=== PATIENT | male | born 1955 | race Caucasian/White ===

== ENCOUNTER → 2018-03-16 | Outpatient (CLI) | payer OTHER | END | disposition home or self-care (01) | LOC: RT 10:26 | DX: G31.84 Mild cognitive impairment of uncertain or unknown etiology (principal); R29.6 Repeated falls; R56.9 Unspecified convulsions; Z87.820 Personal history of traumatic brain injury | CPT/HCPCS: 95816 ==

== ENCOUNTER → 2018-03-22 | Outpatient (CLI) | payer OTHER ==
[2015-12-04 14:30] VITALS: BP 131/79
[~2018-03-22] MED LIST: CA C1TAB62 PO; CELE200C PO; DOCU-150 PO; FERR325T58 PO; FEXO1TAB27 PO; HYDR-2762 PO; LISI2.5T PO; METF10003 PO; MULT1TAB52 PO; OXYC-323 PO; PIOG30TA41 PO; WARF-78 PO; mega red
--- NOTE | 2018-03-22 13:20 | KCIC ---
MRI of the brain without contrast 03/22/2018 Clinical History: Cognitive impairment with frequent falls and seizures. Technique: Unenhanced T1-weighted sagittal and axial, T2-weighted axial and coronal and FLAIR, gradient echo and diffusion-weighted axial images of the brain were obtained. Additionally thin section FLAIR coronal images through the temporal lobes were obtained. Findings: No previous imaging studies are available for comparison. There is generalized parenchymal atrophy. Patchy, confluent and multiple focal areas of increased signal intensity are seen within the periventricular and subcortical white matter of both cerebral hemispheres on the FLAIR and T2-weighted images consistent with areas of small vessel ischemic disease. An area of encephalomalacia is seen involving the anterior lateral left temporal lobe. This measures 3 cm in greatest diameter. A smaller area encephalomalacia is seen involving right lateral temporal lobe. This measures 1.2 cm in size. No acute parenchymal abnormality is seen. No extra-axial fluid collection is seen. There is no MRI evidence of acute ischemia/infarction. Mild mucosal thickening is seen scattered throughout the paranasal sinuses. There is a minimal bilateral mastoid effusions, right greater than left. Normal flow voids are seen within the major vascular structures surrounding the brain parenchyma. Impression: No acute parenchymal abnormality is seen. Electronically signed by: Albert Rivera MD (03/22/2018 1:16 PM) [facility]
== END | disposition home or self-care (01) ==
LOC: KCIC MRI 11:20
PROVIDERS: ATTEND Psychiatry & Neurology Neurology with Special Qualifications in Child Neurology
DX: G31.84 Mild cognitive impairment of uncertain or unknown etiology (principal); G93.89 Other specified disorders of brain; R56.9 Unspecified convulsions; Z87.820 Personal history of traumatic brain injury; X58.XXXA Exposure to other specified factors, initial encounter; Y93.89 Activity, other specified; Y92.89 Other specified places as the place of occurrence of the external cause; Y99.8 Other external cause status
CPT/HCPCS: 70551

== ENCOUNTER → 2019-01-08 | Outpatient (CLI) | payer OTHER ==
[2015-12-04 14:30] VITALS: BP 131/79
[~2019-01-08] MED LIST changes: -HYDR-2762 PO; +HYDR-2765 PO; -METF10003 PO; +METF10007 PO; -OXYC-323 PO; +OXYC1TAB15 PO
--- NOTE | 2019-01-08 12:27 | KCIC ---
MRI of the brain without contrast 01/08/2019 Clinical History: Traumatic brain injury. Frequent falls. Partial complex seizures. Alzheimer's dementia. Technique: Unenhanced T1-weighted sagittal and axial andT2-weighted axial, FLAIR, gradient echo and diffusion-weighted axial images of the brain were obtained. Additionally thin section T2-weighted and FLAIR coronal images through the temporal lobes were obtained. Findings: Comparison study is dated 03/22/2018. There is generalized parenchymal atrophy. Patchy, confluent and multiple focal areas of increased signal intensity are seen within the periventricular and subcortical white matter of both cerebral hemispheres on the FLAIR and T2-weighted images consistent with areas of small vessel ischemic disease. These have not significantly changed. Areas of encephalomalacia are seen involving the anterior left temporal lobe and the right lateral temporal lobe, unchanged. No acute parenchymal abnormality is seen. No extra-axial fluid collection is seen. There is no MRI evidence of acute ischemia/infarction. Mild mucosal thickening in seen scattered throughout the paranasal sinuses. There is a minimal left mastoid effusion. A small right mastoid effusion is seen. Normal flow voids are seen within the major vascular structures surrounding the brain parenchyma. Impression: No acute parenchymal abnormality is seen. Electronically signed by: Albert Rivera MD (01/08/2019 12:24 PM) [facility]
== END | disposition home or self-care (01) ==
LOC: KCIC MRI 09:56
PROVIDERS: ATTEND Psychiatry & Neurology Neurology with Special Qualifications in Child Neurology
DX: H74.8X3 Other specified disorders of middle ear and mastoid, bilateral (principal); G93.89 Other specified disorders of brain; G30.1 Alzheimer's disease with late onset; Z87.820 Personal history of traumatic brain injury
CPT/HCPCS: 70551

== ENCOUNTER 2020-08-08 18:49 | Inpatient (IN) | payer MEDICARE ==
[~2020-08-08] VITALS: Ht 172.7 cm; Wt 60.5 kg
[~2020-08-08 18:49] MED LIST changes: +ASPI-630 PO; -DOCU-150 PO; +DOCU-158 PO; +FLUO40CA2 PO; +MEMA10TA PO; +MULT-445 PO; -MULT1TAB52 PO; +OMEG1CAP38 PO; -WARF-78 PO; +WARF5TAB2 PO
--- NOTE | 2020-08-08 19:15 | PHYS DOC ---
Past Medical History Past Medical History: Dementia, Diabetes-Type II Past Surgical History: Knee Replacement Smoking Status: Former Smoker Alcohol Use: None Drug Use: None General Adult EDM: Chief Complaint: DENTAL PROBLEM HPI: HPI: Patient is a 65 year old male past medical history Alzheimer's dementia--Covid + July 21 presents for evaluation of right-sided facial swelling. History obtained from EMS they state swelling started approximately 1 day ago. Per EMS long term states patient is having difficulty eating /drinking due to swelling. No history of fever chills nausea vomiting. On exam patient is unable to provide any history. His vital signs are stable. Patient has swelling along the right parotid and some mandibular glands. Patient has diffuse poor dentition. Review of Systems: Review of Systems: Unable to obtain due to dementia Heart Score: Risk Factors: Risk Factors: DM, Current or recent (<one month) smoker, HTN, HLP, family history of CAD, obesity. Risk Scores: Score 0 - 3: 2.5% MACE over next 6 weeks - Discharge Home Score 4 - 6: 20.3% MACE over next 6 weeks - Admit for Clinical Observation Score 7 - 10: 72.7% MACE over next 6 weeks - Early Invasive Strategies Allergies: Allergies: Allergies Coded Allergies Type Severity Reaction Last Updated Verified No Known Drug Allergies 12/01/15 No Physical Exam: PE: Constitutional: Cachectic ill-appearing HENT: Normocephalic, atraumatic, bilateral external ears normal, diffuse poor dentition. Facial swelling right parotid submandibular Eyes: PERRLA, EOMI, conjunctiva normal, no discharge. [] Neck: Normal range of motion, no tenderness, supple, no stridor. [Prominent neck vasculature] Cardiovascular: Tachycardia Lungs & Thorax: Bilateral breath sounds clear to auscultation [no respiratory distress] Abdomen: Abdomen is soft Skin: Warm, dry, no erythema, no rash. [] Extremities: No deformities Neurologic: Demented unable to follow commands unable to provide any history EKG: EKG: EKG performed at 1925 sinus tachycardia heart rate [address] elevation no ST depression no acute MO [] Radiology/Procedures: Radiology/Procedures: [] Impression: FINDINGS: Visualized intracranial structures are unremarkable. Globes and orbital contents are normal. Visualized portions of paranasal sinuses and mastoid air cells are well-pneumatized Evaluation is limited secondary to extensive streak artifact from dental amalgam. There is extensive soft tissue stranding in subcutaneous fat overlying the right parotid gland extending down to the level of the mid neck. No area of periapical lucency and cortical breakthrough is identified. No periosteal abscess is identified. IMPRESSION: 1. Extensive stranding and edema suggesting is fat overlying the right parotid gland, with asymmetric enlargement and hypoenhancement of the right parotid. Findings may be infectious or inflammatory in etiology. 2. No distinct dental abscess identified. Exposure: One or more of the following in the visualized dose reduction techniques were utilized for this examination: 1. Automated exposure control 2. Adjustment of the MA and/or KV according to patient size 3. Use of iterative of reconstructive technique Electronically signed by: Dileep Arevalo MD (08/08/2020 8:56 PM) [facility] DICTATED and SIGNED BY: DILEEP AREVALO MD Course & Med Decision Making: Course & Med Decision Making Pertinent Labs and Imaging studies reviewed. (See chart for details) [] Patient was evaluated for chief complaint. Work-up consisted of laboratory analysis and radiologic imaging. Results reviewed. Patient noted to have a leukocytosis of greater than 22. Patient's heart rate tachycardic. Patient tested positive for Covid on July 21. CT shows inflammation of parotid gland. Patient started on vancomycin and Unasyn. Patient admitted to Dr. Busch consult placed for ID. Denney Disclaimer: Jumana Disclaimer: This electronic medical record was generated, in whole or in part, using a voice recognition dictation system. Departure Departure Impression: Primary Impression: Facial swelling Additional Impressions: Dementia Parotitis, acute COVID-19 Leukocytosis Disposition: ADMITTED INPT THIS HOSP Admitting Physician: ARELY Condition: STABLE Referrals: REYES HARRINGTON MD (PCP) HERMINIO WHYTE DO Aug 08, 2020 19:15
[2020-08-08] MEDS ORDERED: IOHEXOL 300 MG/ML 100ML VIAL. IV ONE (19:45)
[2020-08-08 19:53] LABS: BASO # 0.1 x10^3/uL (0.0-0.2); BASO % 0 % (0-3); EOS % 0 % (0-3); HEMATOCRIT 38.8 % (39.0-53.0); HEMOGLOBIN 12.6 g/dL (13.0-17.5); LYMPH # 0.7 x10^3/uL (1.0-4.8); LYMPH % 3 % (24-48); MEAN CORPUSCULAR HEMOGLOBIN 28 pg (25-35); MEAN CORPUSCULAR HGB CONC 33 g/dL (31-37); MEAN CORPUSCULAR VOLUME 86 fL (79-100); MONO # 1.2 x10^3/uL (0.0-1.1); MONO % 5 % (0-9); NEUT # 20.9 x10^3/uL (1.8-7.7); NEUT % 91 % (31-73); PLATELET COUNT 347 x10^3/uL (140-400); RED BLOOD COUNT 4.51 x10^6/uL (4.30-5.70); RED CELL DISTRIBUTION WIDTH 14.3 % (11.5-14.5); WHITE BLOOD COUNT 22.9 x10^3/uL (4.0-11.0)
[2020-08-08] MEDS ORDERED: IV NORMAL SALINE 1000ML BAG 1,000 ML IV ONE ×2 (20:00→23:30)
[2020-08-08] MEDS ORDERED: CONTRAST GIVEN. MC PRN (20:00)
[2020-08-08 20:05] LABS: CALCIUM 9.5 mg/dL (8.5-10.1); CREATININE 1.6 mg/dL (0.7-1.3); GFR 43.5; POTASSIUM 4.2 mmol/L (3.5-5.1)
[2020-08-08 20:10] LABS: ALBUMIN 3.4 g/dL (3.4-5.0); ALBUMIN/GLOBULIN RATIO 0.9 (1.0-1.7); TOTAL BILIRUBIN 0.9 mg/dL (0.2-1.0); TOTAL PROTEIN 7.4 g/dL (6.4-8.2)
--- NOTE | 2020-08-08 20:59 | RAD ---
Exam: CT maxillofacial with contrast INDICATION: Facial swelling, right-sided, tooth abscess TECHNIQUE: Sequential axial images through the maxillofacial obtained following the administration of 75 mL of Omni 300 IV contrast. Sagittal and coronal reformatted images were reconstructed from the a xial data and reviewed. Comparisons: CT head 06/16/2020 FINDINGS: Visualized intracranial structures are unremarkable. Globes and orbital contents are normal. Visualized portions of paranasal sinuses and mastoid air cell s are well-pneumatized Evaluation is limited secondary to extensive streak artifact from dental amalgam. There is extensive soft tissue stranding in subcutaneous fat overlying the right parotid gland extend ing down to the level of the mid neck. No area of periapical lucency and cortical breakthrough is mateus ntified. No periosteal abscess is identified. IMPRESSION: 1. Extensive stranding and edema suggesting is fat overlying the right parotid gland, with asymmetri c enlargement and hypoenhancement of the right parotid. Findings may be infectious or inflammatory in etiology. 2. No distinct dental abscess identified. Exposure: One or more of the following in the visualized dose reduction techniques were utilized for this examination: 1. Automated exposure control 2. Adjustment of the MA and/or KV according to patient size 3. Use of iterative of reconstructive technique Electronically signed by: Dileep Ojeda MD (08/08/2020 8:56 PM) [facility]
[2020-08-08] MEDS ORDERED: VANCOMYCIN 1.25 GM in IV NORMAL SALINE 250ML 250 ML IV ONE (21:30)
[2020-08-08 21:38] LABS: % BANDS 2 % (0-9); % BASOS 1 % (0-3); % LYMPHS 3 % (24-48); % MONOS 8 % (0-10); % SEGS 86 % (35-66)
[2020-08-08 21:39] LABS: PLT ESTIMATE ADEQUATE (ADEQUATE)
[2020-08-08] MEDS ORDERED: ONDANSETRON PF 4 MG/2 ML VIAL. IV PRN (21:45)
[2020-08-08] MEDS ORDERED: ACETAMINOPHEN 325 MG TABLET. PO PRN (21:45)
[2020-08-08] MEDS ORDERED: VANCOMYCIN PER PHARMACY MC PRN (21:45)
[2020-08-08] MEDS ORDERED: AMPICILLIN/SULBACTAM 3 GM in IV NORMAL SALINE 100ML 100 ML IV ONE (22:00)
[2020-08-08] MEDS ORDERED: VANCOMYCIN 1.5 GM in IV NORMAL SALINE 500ML BAG 500 ML IV ONE (22:00)
--- NOTE | 2020-08-08 22:38 | RAD ---
Exam: Chest one view INDICATION: History of Covid, dementia, leukocytosis TECHNIQUE: Frontal view of the chest Comparisons: 11/17/2015 FINDINGS: The cardiomediastinal silhouette and pulmonary vessels are within normal limits. The lung and pleural spaces are clear. IMPRESSION: No acute cardiopulmonary process. Electronically signed by: Dileep Ojeda MD (08/08/2020 10:36 PM) [facility]
--- NOTE | 2020-08-09 00:28 | NUR ---
Pharmacy Vancomycin Dosing Note S:Consulted to monitor and dose vancomycin started 08/09/20. O:CLAUDIO MOHAMUD is a 65 year old M with Sepsis . Height: 5 feet, 8 inches Weight: 65.0 kg [place] Body Weight: 68.40 Adjusted Body Weight: 67.04 Dosing Weight: Actual Other Antibiotics: LABS: Last BUN: 57 Last Creatinine: 1.6 Creatinine Clearance: 41 mL/min Last WBC: 22.9 Last Procalcitonin: Tmax (past 24 hours): Microbiology: I/O: Drug Levels: Last level: on at Last dose given 08/09/20 at 0000 Vancomycin Dosing: Loading Dose: 1500 mg x1 Dosing Weight: Actual Target Trough: 15-20 A: Based on: WT AND CRCL P: 1. Begin Vancomycin 1000 mg IV q24h 2. Follow up Trough level on 08/10/20 at 2330 3. Pharmacy will continue to monitor, follow and adjust therapy as needed. TYRESE LLAMAS RPH, 08/09/20 0028 Signed: 08/09/20 at 0029 by TYRESE LLAMAS RPH PHA
[2020-08-09] MEDS ORDERED: FERR325T14 PO (02:11)
[2020-08-09] MEDS ORDERED: BISA10SU55 RC (02:11)
[2020-08-09] MEDS ORDERED: METF10007 PO (02:11)
[2020-08-09] MEDS ORDERED: MAGN400O7 PO (02:11)
[2020-08-09] MEDS ORDERED: APIX5TAB PO (02:11)
[2020-08-09] MEDS ORDERED: VENTOLIN HFA18 GM INH (02:11)
[2020-08-09] MEDS ORDERED: PIOG30TA62 PO (03:02)
[2020-08-09] MEDS ORDERED: ONDA4TAB7 PO (03:02)
[2020-08-09] MEDS ORDERED: CHOL500021 PO (03:02)
[2020-08-09] MEDS ORDERED: ASCO500C PO (03:02)
[2020-08-09 03:50] VITALS: BP 157/87
[2020-08-09] MEDS ORDERED: MORPHINE SULFATE 4 MG/ML VIAL. IV PRN (04:00)
[2020-08-09] MEDS: ACETAMINOPHEN 650 MG SUPP.RECT. PR PRN ×2 (04:42→18:38)
[2020-08-09 04:53] LABS: BASO % 0 % (0-3); EOS % 0 % (0-3); HEMATOCRIT 34.4 % (39.0-53.0); HEMOGLOBIN 11.2 g/dL (13.0-17.5); LYMPH # 0.8 x10^3/uL (1.0-4.8); LYMPH % 3 % (24-48); MEAN CORPUSCULAR HEMOGLOBIN 28 pg (25-35); MEAN CORPUSCULAR HGB CONC 33 g/dL (31-37); MEAN CORPUSCULAR VOLUME 86 fL (79-100); MONO # 1.7 x10^3/uL (0.0-1.1); MONO % 7 % (0-9); NEUT # 22.9 x10^3/uL (1.8-7.7); NEUT % 90 % (31-73); PLATELET COUNT 289 x10^3/uL (140-400); RED BLOOD COUNT 4.01 x10^6/uL (4.30-5.70); RED CELL DISTRIBUTION WIDTH 14.5 % (11.5-14.5); WHITE BLOOD COUNT 25.4 x10^3/uL (4.0-11.0)
[2020-08-09 07:00] VITALS: BP 167/83
--- NOTE | 2020-08-09 07:47 | PDOC1 ---
History and Physical Date of Service: DOS: DATE: 08/09/20 TIME: 07:44 Chief Complaint: Chief Complain: facial swelling History of Present Illness: HPI: 65 year old male past medical history Alzheimer's dementia--Covid + July 21 presents for evaluation of right-sided facial swelling. History obtained from EMS they state swelling started approximately 1 day ago. Per EMS correction states patient is having difficulty eating /drinking due to swelling. No history of fever chills nausea vomiting. On exam patient is unable to provide any history. His vital signs are stable. Patient has swelling along the right parotid and some mandibular glands. Patient has diffuse poor dentition. Past Medical/Surgical History: PMH/PSH: Past Medical History: Alzheimers, Dementia, Diabetes-Type II Past Surgical History: Knee Replacement Allergies: Allergies: Coded Allergies: No Known Drug Allergies (Unverified , 12/01/15) Family History: Family History: Reviewed with no relevant findings Social History: Social History: Smoking Status: Former Smoker Alcohol Use: None Drug Use: None Current Medications: Current Medications Current Medications Iohexol (Omnipaque 300 Mg/ml) 75 ml 1X ONCE IV Last administered on 08/08/20at 20:32; Start 08/08/20 at 19:45; Stop 08/08/20 at 19:46; Status DC Sodium Chloride 1,000 ml @ 1,000 mls/hr 1X ONCE IV Last administered on 08/08/20at 19:53; Start 08/08/20 at 20:00; Stop 08/08/20 at 20:59; Status DC Info (CONTRAST GIVEN -- Rx MONITORING) 1 each PRN DAILY PRN MC SEE COMMENTS; Start 08/08/20 at 20:00; Stop 08/10/20 at 19:59 Vancomycin HCl 1.25 gm/Sodium Chloride 250 ml @ 166.667 mls/hr 1X ONCE IV ; Start 08/08/20 at 21:30; Stop 08/08/20 at 22:59; Status UNV Ampicillin Sodium/ Sulbactam Sodium 3 gm/Sodium Chloride 100 ml @ 200 mls/hr 1X ONCE IV Last administered on 08/08/20at 23:05; Start 08/08/20 at 22:00; Stop 08/08/20 at 22:29; Status DC Vancomycin HCl (Vanco Per Pharmacy) 1 each PRN DAILY PRN MC SEE COMMENTS Last administered on 08/09/20at 00:27; Start 08/08/20 at 21:45 Vancomycin HCl 1.5 gm/Sodium Chloride 500 ml @ 250 mls/hr 1X ONCE IV Last administered on 08/09/20at 00:02; Start 08/08/20 at 22:00; Stop 08/08/20 at 23:59; Status DC Ondansetron HCl (Zofran) 4 mg PRN Q8HRS PRN IV NAUSEA/VOMITING 1ST CHOICE; Start 08/08/20 at 21:45; Stop 08/09/20 at 21:44 Acetaminophen (Tylenol) 650 mg PRN Q4HRS PRN PO FEVER > 100.3'F; Start 08/08/20 at 21:45; Stop 08/09/20 at 21:44 Sodium Chloride 1,000 ml @ 1,000 mls/hr 1X ONCE IV Last administered on 08/08/20at 23:06; Start 08/08/20 at 23:30; Stop 08/09/20 at 00:29; Status DC Vancomycin HCl 1 gm/Sodium Chloride 250 ml @ 250 mls/hr Q24H IV ; Start 08/10/20 at 00:00 Vancomycin HCl (Vancomycin Trough Level) 1 each 1X ONCE MC ; Start 08/10/20 at 23:30; Stop 08/10/20 at 23:31 Acetaminophen (Tylenol Supp) 650 mg PRN Q6HRS PRN [place] MILD PAIN / TEMP > 100.3'F Last administered on 08/09/20at 04:42; Start 08/09/20 at 04:30 Active Scripts Active Reported Zofran (Ondansetron Hcl) 4 Mg Tablet 4 Mg PO Q4HRS PRN D3-50 (Cholecalciferol (Vitamin D3)) 50,000 Unit Capsule 50,000 Unit PO DAILY Vitamin C (Ascorbic Acid) 500 Mg Capsule.er 1 Cap PO DAILY 30 Days Pioglitazone Hcl 30 Mg Tablet 30 Mg PO DAILY Milk Of Magnesia (Magnesium Hydroxide) 400 Mg/5 Ml Oral.susp 30 Ml PO DAILY PRN Metformin Hcl 1,000 Mg Tablet 1,000 Mg PO BIDWMEALS Ferrous Sulfate 325 Mg Tablet 1 Tab PO BID Eliquis (Apixaban) 5 Mg Tablet 5 Mg PO BID Dulcolax (Bisacodyl) 10 Mg Supp.rect 1 Supp RC DAILY PRN 10 Days Ventolin Hfa Inhaler (Albuterol Sulfate) 18 Gm Hfa.aer.ad 2 Puff INH Q4HRS PRN Aspirin 81 Mg Tab.chew 1 Tab PO DAILY [place] 3 Fish Oil Softgel (Vinton-3 Fatty Acids/Fish Oil) 1 Each Capsule.dr 1 Each PO DAILY Namenda (Memantine Hcl) 10 Mg Tablet 1 Tab PO BID Fluoxetine Hcl 40 Mg Capsule 1 Cap PO DAILYWBKFT Celebrex (Celecoxib) 200 Mg Capsule 1 Cap PO DAILY LAST DOSE GIVEN: DATE:12-04-15 TIME:8:30 a.m. NEXT DOSE DUE: DATE:12-05-15 TIME:8:30 a.m. Multivitamins (Multivitamin) 1 Each Tablet 1 Tab PO DAILY LAST DOSE GIVEN: DATE:12-04-15 TIME:8:30 a.m. NEXT DOSE DUE: DATE:12-05-15 TIME:8:30 a.m. ROS: Review of Systems Review of System REVIEW OF SYSTEMS: GENERAL: Denies weakness SKIN: No bruising, hair changes or rashes. EYES: No blurred, double or loss of vision. NOSE AND THROAT: No history of nosebleeds, hoarseness or sore throat. HEART: No history of palpitations, chest pain or shortness of breath on exertion. LUNGS: Denies cough, hemoptysis, wheezing or shortness of breath. GASTROINTESTINAL: Denies changes in appetite, nausea, vomiting, diarrhea or constipation. GENITOURINARY: No history of frequency, urgency, hesitancy or nocturia. NEUROLOGIC: Denies history of numbness, tingling, or tremor. PSYCHIATRIC: No history of panic, anxiety or depression. ENDOCRINE: No history of heat or cold intolerance, polyuria or polydipsia. EXTREMITIES: Denies joint pain, pain on walking or stiffness. Physical Exam: Vital Signs: Vital Signs Date Time Temp Pulse Resp B/P (MAP) Pulse Ox O2 Delivery O2 Flow Rate FiO2 08/09/20 03:50 99.2 101 21 157/87 (110) 95 Room Air 99.2 Physcial Exam: GEN: No apparent distress. Alert and oriented HEENT: Normal cephalic, atraumatic, external auditory canals are patent EYES: Extraocular muscles are intact, pupil are equally round and reactive to light and accommodation MUSCULOSKELETAL: Well developed , well nourished, good range of motion ENDOCRINE: No thyromegaly was palpated LYMPHATICS: No cervical chain or axillary nodes were noted HEMATOPOIETIC: No bruising NECK: Supple, no JVD, no thyromegaly was noted LUNGS: Clear to auscultation in all lung rosado without rhonchi or wheezing HEART: RRR, S!, S2 present. Peripheral pulses intact, no obvious murmurs noted ABDOMEN: Soft, nontender. Positive bowel sounds, no organomegaly, normal bowel sounds EXTREMITIES: Without clubbing, cyanosis, or edema. Pedal pulses intact. Negative Homans sign NEUROLOGIC: Normal speech and tone. A&O x 3, moves all extremities, no obvious focal deficits PSYCHIATRIC: Normal affect, normal mood. Stable SKIN: Right facial swelling and erythema. Tender upon palpation VASCULAR: Good capillary refill, neurovascular bundle appears to be intact Labs: Labs: Laboratory Tests Test 08/08/20 15:32 08/09/20 04:00 White Blood Count 22.9 x10^3/uL (4.0-11.0) 25.4 x10^3/uL (4.0-11.0) Red Blood Count 4.51 x10^6/uL (4.30-5.70) 4.01 x10^6/uL (4.30-5.70) Hemoglobin 12.6 g/dL (13.0-17.5) 11.2 g/dL (13.0-17.5) Hematocrit 38.8 % (39.0-53.0) 34.4 % (39.0-53.0) Mean Corpuscular Volume 86 fL (79-100) 86 fL (79-100) Mean Corpuscular Hemoglobin 28 pg (25-35) 28 pg (25-35) Mean Corpuscular Hemoglobin Concent 33 g/dL (31-37) 33 g/dL (31-37) Red Cell Distribution Width 14.3 % (11.5-14.5) 14.5 % (11.5-14.5) Platelet Count 347 x10^3/uL (140-400) 289 x10^3/uL (140-400) Neutrophils (%) (Auto) 91 % (31-73) 90 % (31-73) Lymphocytes (%) (Auto) 3 % (24-48) 3 % (24-48) Monocytes (%) (Auto) 5 % (0-9) 7 % (0-9) Eosinophils (%) (Auto) 0 % (0-3) 0 % (0-3) Basophils (%) (Auto) 0 % (0-3) 0 % (0-3) Neutrophils # (Auto) 20.9 x10^3/uL (1.8-7.7) 22.9 x10^3/uL (1.8-7.7) Lymphocytes # (Auto) 0.7 x10^3/uL (1.0-4.8) 0.8 x10^3/uL (1.0-4.8) Monocytes # (Auto) 1.2 x10^3/uL (0.0-1.1) 1.7 x10^3/uL (0.0-1.1) Eosinophils # (Auto) 0.0 x10^3/uL (0.0-0.7) 0.0 x10^3/uL (0.0-0.7) Basophils # (Auto) 0.1 x10^3/uL (0.0-0.2) 0.0 x10^3/uL (0.0-0.2) Segmented Neutrophils % 86 % (35-66) Band Neutrophils % 2 % (0-9) Lymphocytes % 3 % (24-48) Monocytes % 8 % (0-10) Basophils % 1 % (0-3) Platelet Estimate Adequate (ADEQUATE) Large Platelets Few Sodium Level 150 mmol/L (136-145) Potassium Level 4.2 mmol/L (3.5-5.1) Chloride Level 111 mmol/L (98-107) Carbon Dioxide Level 24 mmol/L (21-32) Anion Gap 15 (6-14) Blood Urea Nitrogen 57 mg/dL (8-26) Creatinine 1.6 mg/dL (0.7-1.3) Estimated GFR (Cockcroft-Gault) 43.5 BUN/Creatinine Ratio 36 (6-20) Glucose Level 195 mg/dL (70-99) Lactic Acid Level 1.7 mmol/L (0.4-2.0) Calcium Level 9.5 mg/dL (8.5-10.1) Total Bilirubin 0.9 mg/dL (0.2-1.0) Aspartate Amino Transf (AST/SGOT) 21 U/L (15-37) Alanine Aminotransferase (ALT/SGPT) 24 U/L (16-63) Alkaline Phosphatase 100 U/L (46-116) Total Protein 7.4 g/dL (6.4-8.2) Albumin 3.4 g/dL (3.4-5.0) Albumin/Globulin Ratio 0.9 (1.0-1.7) Laboratory Tests Test 08/08/20 15:32 08/09/20 04:00 White Blood Count 22.9 x10^3/uL (4.0-11.0) 25.4 x10^3/uL (4.0-11.0) Red Blood Count 4.51 x10^6/uL (4.30-5.70) 4.01 x10^6/uL (4.30-5.70) Hemoglobin 12.6 g/dL (13.0-17.5) 11.2 g/dL (13.0-17.5) Hematocrit 38.8 % (39.0-53.0) 34.4 % (39.0-53.0) Mean Corpuscular Volume 86 fL (79-100) 86 fL (79-100) Mean Corpuscular Hemoglobin 28 pg (25-35) 28 pg (25-35) Mean Corpuscular Hemoglobin Concent 33 g/dL (31-37) 33 g/dL (31-37) Red Cell Distribution Width 14.3 % (11.5-14.5) 14.5 % (11.5-14.5) Platelet Count 347 x10^3/uL (140-400) 289 x10^3/uL (140-400) Neutrophils (%) (Auto) 91 % (31-73) 90 % (31-73) Lymphocytes (%) (Auto) 3 % (24-48) 3 % (24-48) Monocytes (%) (Auto) 5 % (0-9) 7 % (0-9) Eosinophils (%) (Auto) 0 % (0-3) 0 % (0-3) Basophils (%) (Auto) 0 % (0-3) 0 % (0-3) Neutrophils # (Auto) 20.9 x10^3/uL (1.8-7.7) 22.9 x10^3/uL (1.8-7.7) Lymphocytes # (Auto) 0.7 x10^3/uL (1.0-4.8) 0.8 x10^3/uL (1.0-4.8) Monocytes # (Auto) 1.2 x10^3/uL (0.0-1.1) 1.7 x10^3/uL (0.0-1.1) Eosinophils # (Auto) 0.0 x10^3/uL (0.0-0.7) 0.0 x10^3/uL (0.0-0.7) Basophils # (Auto) 0.1 x10^3/uL (0.0-0.2) 0.0 x10^3/uL (0.0-0.2) Segmented Neutrophils % 86 % (35-66) Band Neutrophils % 2 % (0-9) Lymphocytes % 3 % (24-48) Monocytes % 8 % (0-10) Basophils % 1 % (0-3) Platelet Estimate Adequate (ADEQUATE) Large Platelets Few Sodium Level 150 mmol/L (136-145) Potassium Level 4.2 mmol/L (3.5-5.1) Chloride Level 111 mmol/L (98-107) Carbon Dioxide Level 24 mmol/L (21-32) Anion Gap 15 (6-14) Blood Urea Nitrogen 57 mg/dL (8-26) Creatinine 1.6 mg/dL (0.7-1.3) Estimated GFR (Cockcroft-Gault) 43.5 BUN/Creatinine Ratio 36 (6-20) Glucose Level 195 mg/dL (70-99) Lactic Acid Level 1.7 mmol/L (0.4-2.0) Calcium Level 9.5 mg/dL (8.5-10.1) Total Bilirubin 0.9 mg/dL (0.2-1.0) Aspartate Amino Transf (AST/SGOT) 21 U/L (15-37) Alanine Aminotransferase (ALT/SGPT) 24 U/L (16-63) Alkaline Phosphatase 100 U/L (46-116) Total Protein 7.4 g/dL (6.4-8.2) Albumin 3.4 g/dL (3.4-5.0) Albumin/Globulin Ratio 0.9 (1.0-1.7) Images: Images CXR Impression: 1. No acute cardiopulmonary process. CT MAX FACIAL IMPRESSION: 1. Extensive stranding and edema suggesting is fat overlying the right parotid gland, with asymmetric enlargement and hypoenhancement of the right parotid. Findings may be infectious or inflammatory in etiology. 2. No distinct dental abscess identified. Assessment/Plan Assessment/Plan Acute right parotitis COVID-19 infection Reactive leukocytosis suggestive of infectious etiology Normocytic anemia Acute electrolyte derangementhypernatremia and hyperchloremia suggestive of volume depletion dehydration HAILEY due to vasomotor nephropathy Alzheimer's dementia Poor dentition Diabetes mellitus type 2 Admit to medicine for further management ID consult Continue empiric IV antibiotics Pending repeat Covid test Chlorhexidine mouthwash for poor dentition PT OT speech modalities Lovenox for DVT prophylaxis Pepcid GI prophylaxis N.p.o. Full code Discussed with RN and SW Disposition pending ID evaluation Surrogate decision maker is the daughter Justifications for Admission Other Justification RONALD MEADE MD Aug 09, 2020 07:47
[2020-08-09] MEDS ORDERED: SENNOSIDES 8.6 MG TABLET PO PRN (08:00)
[2020-08-09] MEDS: INSULIN LISPRO 300 UNITS/3 ML VIAL. SQ SCH ×3 (08:00→17:00)
[2020-08-09] MEDS ORDERED: MORPHINE SULFATE 2 MG/ML VIAL. IV PRN (08:00)
[2020-08-09] MEDS ORDERED: ACETAMINOPHEN 325 MG TABLET. PO PRN (08:00)
[2020-08-09] MEDS ORDERED: DEXTROSE 50% 25 GM / 50ML DISP.SYRIN. IV PRN (08:00)
[2020-08-09] MEDS ORDERED: ONDANSETRON PF 4 MG/2 ML VIAL. IVP PRN (08:00)
[2020-08-09] MEDS ORDERED: DOCUSATE SODIUM 100 MG CAPSULE. PO PRN (08:00)
[2020-08-09] MEDS: IV 1/2 NORMAL SALINE 1,000 ML IV SCH ×2 (09:49→17:41)
[2020-08-09] MEDS ORDERED: AMPICILLIN/SULBACTAM 3 GM in IV NORMAL SALINE 100ML 100 ML IV SCH (10:00)
--- NOTE | 2020-08-09 10:14 | CONS ---
DATE OF CONSULTATION: 08/08/2020 REFERRING PHYSICIAN: Dr. Valencia. REASON FOR CONSULTATION: Right facial cellulitis, parotitis. HISTORY OF PRESENT ILLNESS: A 65-year-old longterm resident, was brought to the ER with COVID-19 positive 07/21/2020 with decreased p.o. intake, right-sided swelling and redness. The patient has poor dentition. The patient has severe Alzheimer's dementia, unable to provide any history. Does not respond to any questions. History obtained from chart and medical staff. The patient was noted to have swelling around the right face, parotid area and mandibular gland. The patient was febrile with leukocytosis and lactate of 1.7, creatinine of 1.6. CT maxillofacial area showed extensive stranding and edema suggesting fat overlying the right parotid gland with asymmetric enlargement and hyperenhancement of the right parotid. Findings may be infectious or inflammatory in etiology. No distinct dental abscess is identified. Chest x-ray showed no acute cardiopulmonary abnormality. The patient was started on vancomycin and Unasyn. ID consultation has been requested for antibiotic management. The patient currently remains on room air. Does not answer any questions. Grimaces with tactile stimuli. PAST MEDICAL HISTORY: Diabetes, longterm resident, Alzheimer's dementia, poor dentition. PAST SURGICAL HISTORY: Knee replacement. ALLERGIES: No known drug allergies. SOCIAL HISTORY: Former smoker, no alcohol, no drugs. long term resident. CURRENT MEDICATION: IV vancomycin and Unasyn. Other medications reviewed in medication list. REVIEW OF SYSTEMS: Unable to obtain. PHYSICAL EXAMINATION: VITAL SIGNS: Temperature 99.2, pulse 101, respiratory rate 21, blood pressure 157/87, oxygen saturation 95% on room air. T-max is 100.6. GENERAL: Ill-appearing, cachectic male, lying in bed, in no acute distress, on room air. HEENT: Normocephalic, atraumatic. Right-sided swelling, redness, erythema starting from the temporal area, going down the submandibular area, tenderness present. Poor dentition. NECK: Supple. LUNGS: Clear bilaterally. No wheezing. HEART: S1, S2, tachycardia. ABDOMEN: Soft, nontender, nondistended. EXTREMITIES: No edema, no cyanosis. DERMATOLOGIC: Warm and dry. No generalized rash. PSYCHIATRIC: Unable to assess due to underlying dementia. PSYCHIATRIC: Calm. LABORATORY DATA: WBC 25.4, was 22.9, hemoglobin 11.2, hematocrit 34.4, platelets 289. Sodium 150, potassium 4.2, chloride 111, bicarbonate 24, BUN 57, creatinine 1.6, glucose 195. Lactate 1.7. LFTs normal. IMAGING: Maxillofacial CT as above. Chest x-ray as above. IMPRESSION: 1. Right facial cellulitis. 2. Right parotitis. 3. Poor dentition. 4. Alzheimer's dementia. 5. COVID-19 infection on room air, diagnosed 07/21/2020 at longterm. 6. Fever. 7. Leukocytosis. 8. Diabetes mellitus 2. 9. Hypernatremia. 10. Acute kidney injury. RECOMMENDATIONS: 1. Discontinue Unasyn. Start Zosyn. May need renal dosing. 2. Discontinue vancomycin. 3. Start daptomycin. 4. Follow up labs and cultures. 5. Continue supportive care. 6. Prognosis is poor. 7. Discussed with RN. Thank you for allowing me to participate in this patient's care. If you have any questions, do not hesitate to contact me. CHRIS LOTT MD DR: BRYANT/paula JOB#: [id number] / [id number]
[2020-08-09 11:00] VITALS: BP 144/111
[2020-08-09] MEDS: PIPERACILLIN/TAZOBACTAM 3.375 GM in IV NORMAL SALINE 50ML 50 ML IV SCH ×3 (11:17→23:34)
[2020-08-09] MEDS: DAPTOmycin (GENERIC) IVPB 350 MG in IV NORMAL SALINE 50ML 50 ML IV SCH (12:23)
[2020-08-09 15:00] VITALS: BP 149/72
[2020-08-09 19:00] VITALS: BP 148/74
[2020-08-09] MEDS: CHLORHEXIDINE 0.12% 15 ML MOUTHWASH. SWSP SCH (21:06)
[2020-08-09] MEDS: ENOXAPARIN 40 MG/0.4 ML SYRINGE. SQ SCH (21:07)
[2020-08-09 23:00] VITALS: BP 135/77
[2020-08-10] MEDS ORDERED: VANCOMYCIN 1 GM in IV NORMAL SALINE 250ML 250 ML IV SCH
[2020-08-10 03:00] VITALS: BP 141/70
[2020-08-10] MEDS: PIPERACILLIN/TAZOBACTAM 3.375 GM in IV NORMAL SALINE 50ML 50 ML IV SCH ×3 (05:23→17:03)
[2020-08-10 07:00] VITALS: BP 155/87
[2020-08-10] MEDS: INSULIN LISPRO 300 UNITS/3 ML VIAL. SQ SCH ×3 (08:00→17:00)
[2020-08-10] MEDS: IV 1/2 NORMAL SALINE 1,000 ML IV SCH ×2 (08:05→17:04)
[2020-08-10] MEDS: CHLORHEXIDINE 0.12% 15 ML MOUTHWASH. SWSP SCH ×2 (08:05→21:39)
[2020-08-10 11:00] VITALS: BP 157/87
[2020-08-10 11:31] LABS: BASO % 0 % (0-3); EOS % 0 % (0-3); HEMATOCRIT 32.7 % (39.0-53.0); HEMOGLOBIN 10.4 g/dL (13.0-17.5); LYMPH # 1.2 x10^3/uL (1.0-4.8); LYMPH % 5 % (24-48); MEAN CORPUSCULAR HEMOGLOBIN 28 pg (25-35); MEAN CORPUSCULAR HGB CONC 32 g/dL (31-37); MEAN CORPUSCULAR VOLUME 87 fL (79-100); MONO % 4 % (0-9); NEUT # 21.1 x10^3/uL (1.8-7.7); NEUT % 90 % (31-73); PLATELET COUNT 223 x10^3/uL (140-400); RED BLOOD COUNT 3.78 x10^6/uL (4.30-5.70); RED CELL DISTRIBUTION WIDTH 14.6 % (11.5-14.5); WHITE BLOOD COUNT 23.4 x10^3/uL (4.0-11.0)
[2020-08-10 11:44] LABS: CALCIUM 8.5 mg/dL (8.5-10.1); CREATININE 1.3 mg/dL (0.7-1.3); GFR 55.2; MAGNESIUM 2.2 mg/dL (1.8-2.4); PHOSPHORUS 2.2 mg/dL (2.6-4.7); POTASSIUM 3.2 mmol/L (3.5-5.1)
[2020-08-10] MEDS: DAPTOmycin (GENERIC) IVPB 350 MG in IV NORMAL SALINE 50ML 50 ML IV SCH (11:45)
--- NOTE | 2020-08-10 12:06 | PDOC ---
Infectious Disease Note Subjective Subjective pt is lethargic ROS ROS no n/v/d/ Vital Sign Vital Signs Vital Signs Date Time Temp Pulse Resp B/P (MAP) Pulse Ox O2 Delivery O2 Flow Rate FiO2 08/10/20 11:00 99.5 85 20 157/87 (110) 95 Room Air 99.5 Physical Exam PHYSICAL EXAM GENERAL: Ill-appearing, cachectic male, lying in bed, in no acute distress, on room air. HEENT: Normocephalic, atraumatic. Right-sided swelling, redness, erythema starting from the temporal area, going down the submandibular area, tenderness present. Poor dentition. NECK: Supple. LUNGS: Clear bilaterally. No wheezing. HEART: S1, S2, tachycardia. ABDOMEN: Soft, nontender, nondistended. EXTREMITIES: No edema, no cyanosis. DERMATOLOGIC: Warm and dry. No generalized rash. PSYCHIATRIC: Unable to assess due to underlying dementia. PSYCHIATRIC: Calm. Labs Lab Laboratory Tests Test 08/09/20 20:41 08/10/20 08:23 08/10/20 08:32 08/10/20 10:52 Glucose (Fingerstick) 161 mg/dL (70-99) 137 mg/dL (70-99) 144 mg/dL (70-99) White Blood Count 23.4 x10^3/uL (4.0-11.0) Red Blood Count 3.78 x10^6/uL (4.30-5.70) Hemoglobin 10.4 g/dL (13.0-17.5) Hematocrit 32.7 % (39.0-53.0) Mean Corpuscular Volume 87 fL (79-100) Mean Corpuscular Hemoglobin 28 pg (25-35) Mean Corpuscular Hemoglobin Concent 32 g/dL (31-37) Red Cell Distribution Width 14.6 % (11.5-14.5) Platelet Count 223 x10^3/uL (140-400) Neutrophils (%) (Auto) 90 % (31-73) Lymphocytes (%) (Auto) 5 % (24-48) Monocytes (%) (Auto) 4 % (0-9) Eosinophils (%) (Auto) 0 % (0-3) Basophils (%) (Auto) 0 % (0-3) Neutrophils # (Auto) 21.1 x10^3/uL (1.8-7.7) Lymphocytes # (Auto) 1.2 x10^3/uL (1.0-4.8) Monocytes # (Auto) 1.0 x10^3/uL (0.0-1.1) Eosinophils # (Auto) 0.0 x10^3/uL (0.0-0.7) Basophils # (Auto) 0.0 x10^3/uL (0.0-0.2) Sodium Level 154 mmol/L (136-145) Potassium Level 3.2 mmol/L (3.5-5.1) Chloride Level 118 mmol/L (98-107) Carbon Dioxide Level 24 mmol/L (21-32) Anion Gap 12 (6-14) Blood Urea Nitrogen 37 mg/dL (8-26) Creatinine 1.3 mg/dL (0.7-1.3) Estimated GFR (Cockcroft-Gault) 55.2 Glucose Level 140 mg/dL (70-99) Calcium Level 8.5 mg/dL (8.5-10.1) Phosphorus Level 2.2 mg/dL (2.6-4.7) Magnesium Level 2.2 mg/dL (1.8-2.4) Micro Microbiology BC 1/2 G + cocci Objective Assessment IMPRESSION: 1. Right facial cellulitis. 2. Right parotitis. 3. Poor dentition. 4. Alzheimer's dementia. 5. COVID-19 infection on room air, diagnosed 07/21/2020 at [facility]. 6. Fever. 7. Leukocytosis. 8. Diabetes mellitus 2. 9. Hypernatremia. 10. Acute kidney injury. Plan Plan of Care cont antibiotics cont supportive care ILIA LOTT MD Aug 10, 2020 12:06
--- NOTE | 2020-08-10 12:46 | PDOC ---
[facility] [facility] PROGRESS NOTE Date of Service DOS: DATE: 08/10/20 TIME: 12:46 Chief Complaint Chief Complaint A/P: Right facial cellulitis. Right parotitis. Poor dentition. Alzheimer's dementia. COVID-19 infection on room air, diagnosed 07/21/2020 at [facility]. Sepsis - Fever and Leukocytosis Diabetes mellitus 2. Hypernatremia. Acute kidney injury. Dysphagia FEN - IVF PPX - lovenox CODE - DNR/DNI Dispo - inpatient History of Present Illness History of Present Illness Mr Martinez is a 65 year old male past medical history Alzheimer's dementia--Covid + July 21 presents for evaluation of right-sided facial swelling. History obtained from EMS they state swelling started approximately 1 day prior to admit. Per EMS [facility] states patient is having difficulty eating /drinking due to swelling. No history of fever chills nausea vomiting. On exam patient is unable to provide any history. His vital signs are stable. Patient has swelling along the right parotid and some mandibular glands. Patient has diffuse poor dentition. Swelling improved. Febrile to 1 to 1.7 F last 24 hours T-max. Minimal shortness of breath. Facial pain. Not swallowing. Vitals/I&O Vitals/I&O: Vital Signs Date Time Temp Pulse Resp B/P (MAP) Pulse Ox O2 Delivery O2 Flow Rate FiO2 08/10/20 11:00 99.5 85 20 157/87 (110) 95 Room Air 99.5 I & O 08/09/20 08/09/20 08/10/20 15:00 23:00 07:00 Intake Total 100 ml 0 ml 0 ml Balance 100 ml 0 ml 0 ml Physical Exam Physical Exam: GENERAL: Ill-appearing, cachectic male, lying in bed, in no acute distress, on room air. HEENT: Normocephalic, atraumatic. Right-sided swelling, redness, erythema starting from the temporal area, going down the submandibular area, tenderness present. Poor dentition. NECK: Supple. LUNGS: Clear bilaterally. No wheezing. HEART: S1, S2, tachycardia. ABDOMEN: Soft, nontender, nondistended. EXTREMITIES: No edema, no cyanosis. DERMATOLOGIC: Warm and dry. No generalized rash. PSYCHIATRIC: Unable to assess due to underlying dementia. PSYCHIATRIC: Calm. Labs Labs: Laboratory Tests Test 08/09/20 20:41 08/10/20 08:23 08/10/20 08:32 08/10/20 10:52 Glucose (Fingerstick) 161 mg/dL (70-99) 137 mg/dL (70-99) 144 mg/dL (70-99) White Blood Count 23.4 x10^3/uL (4.0-11.0) Red Blood Count 3.78 x10^6/uL (4.30-5.70) Hemoglobin 10.4 g/dL (13.0-17.5) Hematocrit 32.7 % (39.0-53.0) Mean Corpuscular Volume 87 fL (79-100) Mean Corpuscular Hemoglobin 28 pg (25-35) Mean Corpuscular Hemoglobin Concent 32 g/dL (31-37) Red Cell Distribution Width 14.6 % (11.5-14.5) Platelet Count 223 x10^3/uL (140-400) Neutrophils (%) (Auto) 90 % (31-73) Lymphocytes (%) (Auto) 5 % (24-48) Monocytes (%) (Auto) 4 % (0-9) Eosinophils (%) (Auto) 0 % (0-3) Basophils (%) (Auto) 0 % (0-3) Neutrophils # (Auto) 21.1 x10^3/uL (1.8-7.7) Lymphocytes # (Auto) 1.2 x10^3/uL (1.0-4.8) Monocytes # (Auto) 1.0 x10^3/uL (0.0-1.1) Eosinophils # (Auto) 0.0 x10^3/uL (0.0-0.7) Basophils # (Auto) 0.0 x10^3/uL (0.0-0.2) Sodium Level 154 mmol/L (136-145) Potassium Level 3.2 mmol/L (3.5-5.1) Chloride Level 118 mmol/L (98-107) Carbon Dioxide Level 24 mmol/L (21-32) Anion Gap 12 (6-14) Blood Urea Nitrogen 37 mg/dL (8-26) Creatinine 1.3 mg/dL (0.7-1.3) Estimated GFR (Cockcroft-Gault) 55.2 Glucose Level 140 mg/dL (70-99) Calcium Level 8.5 mg/dL (8.5-10.1) Phosphorus Level 2.2 mg/dL (2.6-4.7) Magnesium Level 2.2 mg/dL (1.8-2.4) Assessment and Plan Assessmemt and Plan Problems Medical Problems: (1) COVID-19 Status: Acute (2) Dementia Status: Acute (3) Facial swelling Status: Acute (4) Leukocytosis Status: Acute (5) Parotitis, acute Status: Acute Comment Review of Relevant I have reviewed the following items jennifer (where applicable) has been applied. Medications: Current Medications Medications (Trade) Dose Ordered Sig/Moise Route PRN Reason Start Time Stop Time Status Last Admin Dose Admin Enoxaparin Sodium (Lovenox 40mg Syringe) 40 mg Q24H SQ 08/09/20 21:00 08/09/20 21:07 Chlorhexidine Gluconate (Peridex) 15 ml BID SWSP 08/09/20 21:00 08/10/20 08:05 Justifications for Admission Other Justification Acute Parotitis ALISE MCKEON MD Aug 10, 2020 12:46
[2020-08-10 15:00] VITALS: BP 155/101
--- NOTE | 2020-08-10 16:52 | NUR ---
SW following for discharge planning. Spoke with RN and reviewed chart. Pt COVID positive, room air, NPO. SW consulted as pt at high risk for readmission on discharge. SW asked about PT/OT orders to evaluate. Pt of IV Dapto and IV Zosyn. SW following. Addendum: 08/11/20 at 1119 by VAUGHN REBOLLAR SW Pt identified as BPCI. No further needs from this SW.
--- NOTE | 2020-08-10 17:56 | NUR ---
Wound/Ostomy Care Wound Type/Assessment: right 3rd toe DFU, small open area with blood blister. wound cleansed and assessed. Treatment Recommendations/Plan: [place] with betadine daily Education provided: PU prevention and WC POC discussed with Liseth WHITE Offloading surface/device: TQ2H Recommended Referrals/Tests: na Discharge Recommendations for dressings: continue as above noted
[2020-08-10 19:20] VITALS: BP 148/82
[2020-08-10] MEDS: POTASSIUM CHLORIDE 10MEQ 100 ML IV SCH ×2 (21:39→23:01)
[2020-08-10] MEDS: ENOXAPARIN 40 MG/0.4 ML SYRINGE. SQ SCH (21:39)
[2020-08-10 23:00] VITALS: BP 154/95
[2020-08-11] MEDS: IV 1/2 NORMAL SALINE 1,000 ML IV SCH
[2020-08-11] MEDS: PIPERACILLIN/TAZOBACTAM 3.375 GM in IV NORMAL SALINE 50ML 50 ML IV SCH ×4 (00:08→17:35)
[2020-08-11] MEDS: POTASSIUM CHLORIDE 10MEQ 100 ML IV SCH ×2 (01:19→02:54)
[2020-08-11 03:20] VITALS: BP 147/77
[2020-08-11 07:00] VITALS: BP 171/92
[2020-08-11] MEDS: INSULIN LISPRO 300 UNITS/3 ML VIAL. SQ SCH ×3 (08:00→17:00)
--- NOTE | 2020-08-11 10:34 | PDOC ---
Infectious Disease Note Subjective Subjective pt is awake mumbles few words ROS ROS No nausea vomiting diarrhea fevers have improved Vital Sign Vital Signs Vital Signs Date Time Temp Pulse Resp B/P (MAP) Pulse Ox O2 Delivery O2 Flow Rate FiO2 08/11/20 07:00 98.6 95 30 171/92 (118) 95 Room Air 98.6 Physical Exam PHYSICAL EXAM GENERAL: Ill-appearing, cachectic male, lying in bed, in no acute distress, on room air. HEENT: Normocephalic, atraumatic. Right-sided swelling, redness, erythema starting from the temporal area, going down the submandibular area, tenderness present. Poor dentition. NECK: Supple. LUNGS: Clear bilaterally. No wheezing. HEART: S1, S2, tachycardia. ABDOMEN: Soft, nontender, nondistended. EXTREMITIES: No edema, no cyanosis. DERMATOLOGIC: Warm and dry. No generalized rash. PSYCHIATRIC: Unable to assess due to underlying dementia. PSYCHIATRIC: Calm. Labs Lab Laboratory Tests Test 08/10/20 10:52 08/10/20 16:37 08/10/20 21:12 08/11/20 08:18 White Blood Count 23.4 x10^3/uL (4.0-11.0) Red Blood Count 3.78 x10^6/uL (4.30-5.70) Hemoglobin 10.4 g/dL (13.0-17.5) Hematocrit 32.7 % (39.0-53.0) Mean Corpuscular Volume 87 fL (79-100) Mean Corpuscular Hemoglobin 28 pg (25-35) Mean Corpuscular Hemoglobin Concent 32 g/dL (31-37) Red Cell Distribution Width 14.6 % (11.5-14.5) Platelet Count 223 x10^3/uL (140-400) Neutrophils (%) (Auto) 90 % (31-73) Lymphocytes (%) (Auto) 5 % (24-48) Monocytes (%) (Auto) 4 % (0-9) Eosinophils (%) (Auto) 0 % (0-3) Basophils (%) (Auto) 0 % (0-3) Neutrophils # (Auto) 21.1 x10^3/uL (1.8-7.7) Lymphocytes # (Auto) 1.2 x10^3/uL (1.0-4.8) Monocytes # (Auto) 1.0 x10^3/uL (0.0-1.1) Eosinophils # (Auto) 0.0 x10^3/uL (0.0-0.7) Basophils # (Auto) 0.0 x10^3/uL (0.0-0.2) Sodium Level 154 mmol/L (136-145) Potassium Level 3.2 mmol/L (3.5-5.1) Chloride Level 118 mmol/L (98-107) Carbon Dioxide Level 24 mmol/L (21-32) Anion Gap 12 (6-14) Blood Urea Nitrogen 37 mg/dL (8-26) Creatinine 1.3 mg/dL (0.7-1.3) Estimated GFR (Cockcroft-Gault) 55.2 Glucose Level 140 mg/dL (70-99) Calcium Level 8.5 mg/dL (8.5-10.1) Phosphorus Level 2.2 mg/dL (2.6-4.7) Magnesium Level 2.2 mg/dL (1.8-2.4) Glucose (Fingerstick) 134 mg/dL (70-99) 110 mg/dL (70-99) 115 mg/dL (70-99) Micro Microbiology BC 1/2 G + cocci Staph aureus Objective Assessment IMPRESSION: 1. Right facial cellulitis. 2. Right parotitis. 3. Poor dentition. 4. Alzheimer's dementia. 5. COVID-19 infection on room air, diagnosed 07/21/2020 at longterm. 6. Fever. 7. Leukocytosis. 8. Diabetes mellitus 2. 9. Hypernatremia. 10. Acute kidney injury. 11 staph aureus bacteremia Plan Plan of Care cont antibiotics cont supportive care Patient DNR/DNI ILIA LOTT MD Aug 11, 2020 10:34
[2020-08-11 11:00] VITALS: BP 173/78
--- NOTE | 2020-08-11 11:39 | PDOC ---
[facility] PROGRESS NOTE Date of Service DOS: DATE: 08/11/20 TIME: 11:38 Chief Complaint Chief Complaint A/P: Right facial cellulitis. Right parotitis. Poor dentition. Alzheimer's dementia. COVID-19 infection [facility] air[facility] Sepsis - Fever and Leukocytosis Diabetes mellitus 2. Hypernatremia. Acute kidney injury. Dysphagia FEN - IVF PPX - lovenox CODE - DNR/DNI Dispo - inpatient History of Present Illness History of Present Illness Mr Martinez is a 65 year old male past medical history Alzheimer's dementia--Covid + July 21 presents for evaluation of right-sided facial swelling. History obtained from EMS they state swelling started approximately 1 day prior to admit. Per EMS [facility] states patient is having difficulty eating /drinking due to swelling. No history of fever chills nausea vomiting. On exam patient is unable to provide any history. His vital signs are stable. Patient has swelling along the right parotid and some mandibular glands. Patient has diffuse poor dentition. 08/10: Swelling improved. Febrile to 101.7 F last 24 hours T-max. Minimal shortness of breath. Facial pain. Not swallowing. Afebrile overnight. Swelling improved. trying to vocalize more and attempting to swallow today Vitals/I&O Vitals/I&O: Vital Signs Date Time Temp Pulse Resp B/P (MAP) Pulse Ox O2 Delivery O2 Flow Rate FiO2 08/11/20 07:00 98.6 95 30 171/92 (118) 95 Room Air 98.6 I & O 08/10/20 08/10/20 08/11/20 15:00 23:00 07:00 Intake Total 0 ml 0 ml Balance 0 ml 0 ml Physical Exam Physical Exam: GENERAL: Ill-appearing, cachectic male, lying in bed, in no acute distress, on room air. HEENT: Normocephalic, atraumatic. Right-sided swelling, redness, erythema starting from the temporal area, going down the submandibular area, tenderness present. Poor dentition. NECK: Supple. LUNGS: Clear bilaterally. No wheezing. HEART: S1, S2, tachycardia. ABDOMEN: Soft, nontender, nondistended. EXTREMITIES: No edema, no cyanosis. DERMATOLOGIC: Warm and dry. No generalized rash. PSYCHIATRIC: Unable to assess due to underlying dementia. PSYCHIATRIC: Calm. Labs Labs: Laboratory Tests Test 08/10/20 16:37 08/10/20 21:12 08/11/20 08:18 Glucose (Fingerstick) 134 mg/dL (70-99) 110 mg/dL (70-99) 115 mg/dL (70-99) Assessment and Plan Assessmemt and Plan Problems Medical Problems: (1) COVID-19 Status: Acute (2) Dementia Status: Acute (3) Facial swelling Status: Acute (4) Leukocytosis Status: Acute (5) Parotitis, acute Status: Acute Comment Review of Relevant I have reviewed the following items jennifer (where applicable) has been applied. Medications: Current Medications Medications (Trade) Dose Ordered Sig/Moise Route PRN Reason Start Time Stop Time Status Last Admin Dose Admin Potassium Chloride/Water 100 ml @ 100 mls/hr Q1H IV 08/10/20 19:30 08/10/20 23:29 DC 08/11/20 02:54 Justifications for Admission Other Justification Acute Parotitis ALISE MCKEON MD Aug 11, 2020 11:39
[2020-08-11] MEDS: AMINO AC 3%/ELECTROLYTE/GLYCER 1,000 ML IV SCH (12:41)
[2020-08-11] MEDS: DAPTOmycin (GENERIC) IVPB 350 MG in IV NORMAL SALINE 50ML 50 ML IV SCH (12:42)
[2020-08-11] MEDS: CHLORHEXIDINE 0.12% 15 ML MOUTHWASH. SWSP SCH ×2 (12:42→21:02)
[2020-08-11 15:00] VITALS: BP 143/81
[2020-08-11 19:00] VITALS: BP 162/113
[2020-08-11] MEDS: ENOXAPARIN 40 MG/0.4 ML SYRINGE. SQ SCH (21:03)
[2020-08-11 23:45] VITALS: BP 138/60
[2020-08-12] MEDS: PIPERACILLIN/TAZOBACTAM 3.375 GM in IV NORMAL SALINE 50ML 50 ML IV SCH ×4 (00:05→18:06)
[2020-08-12 03:23] VITALS: BP 128/66
[2020-08-12 07:00] VITALS: BP 137/75
[2020-08-12] MEDS: AMINO AC 3%/ELECTROLYTE/GLYCER 1,000 ML IV SCH ×2 (07:49→18:07)
[2020-08-12] MEDS: INSULIN LISPRO 300 UNITS/3 ML VIAL. SQ SCH ×3 (08:00→17:00)
[2020-08-12] MEDS: CHLORHEXIDINE 0.12% 15 ML MOUTHWASH. SWSP SCH ×2 (09:00→20:46)
--- NOTE | 2020-08-12 09:46 | PDOC ---
[facility] [facility] PROGRESS NOTE Date of Service DOS: DATE: 08/12/20 TIME: 09:44 Chief Complaint Chief Complaint A/P: Right facial cellulitis. Right parotitis. Poor dentition. Alzheimer's dementia. COVID-19 infection on room air, diagnosed 07/21/2020 at [facility]. Sepsis - Fever and Leukocytosis Diabetes mellitus 2. Hypernatremia. Acute kidney injury. Dysphagia FEN - IVF PPX - lovenox CODE - DNR/DNI Dispo - inpatient History of Present Illness History of Present Illness Mr Martinez is a 65 year old male past medical history Alzheimer's dementia--Covid + July 21 presents for evaluation of right-sided facial swelling. History obtained from EMS they state swelling started approximately 1 day prior to admit. Per EMS [facility] states patient is having difficulty eating /drinking due to swelling. No history of fever chills nausea vomiting. On exam patient is unable to provide any history. His vital signs are stable. Patient has swelling along the right parotid and some mandibular glands. Patient has diffuse poor dentition. 08/10: Swelling improved. Febrile to 101.7 F last 24 hours T-max. Minimal shortness of breath. Facial pain. Not swallowing. 08/11: Afebrile overnight. Swelling improved. trying to vocalize more and attempting to swallow today Afebrile overnight. Not on O2. WBC 20 3K. Final blood cultures with MRSA. On daptomycin. Facial swelling improved. Still not taking p.o. or following instructions well. Vitals/I&O Vitals/I&O: Vital Signs Date Time Temp Pulse Resp B/P (MAP) Pulse Ox O2 Delivery O2 Flow Rate FiO2 08/12/20 07:00 98.4 71 16 137/75 (95) 96 Room Air 98.4 I & O 08/11/20 08/11/20 08/12/20 15:00 23:00 07:00 Intake Total 0 ml 0 ml 0 ml Balance 0 ml 0 ml 0 ml Physical Exam Physical Exam: GENERAL: Ill-appearing, cachectic male, lying in bed, in no acute distress, on room air. HEENT: Normocephalic, atraumatic. Right-sided swelling, redness, erythema starting from the temporal area, going down the submandibular area, tenderness present. Poor dentition. NECK: Supple. LUNGS: Clear bilaterally. No wheezing. HEART: S1, S2, tachycardia. ABDOMEN: Soft, nontender, nondistended. EXTREMITIES: No edema, no cyanosis. DERMATOLOGIC: Warm and dry. No generalized rash. PSYCHIATRIC: Unable to assess due to underlying dementia. PSYCHIATRIC: Calm. Labs Labs: Laboratory Tests Test 08/11/20 12:06 08/11/20 20:51 Glucose (Fingerstick) 117 mg/dL (70-99) 132 mg/dL (70-99) Assessment and Plan Assessmemt and Plan Problems Medical Problems: (1) COVID-19 Status: Acute (2) Dementia Status: Acute (3) Facial swelling Status: Acute (4) Leukocytosis Status: Acute (5) Parotitis, acute Status: Acute Comment Review of Relevant I have reviewed the following items jennifer (where applicable) has been applied. Medications: Current Medications Medications (Trade) Dose Ordered Sig/Moise Route PRN Reason Start Time Stop Time Status Last Admin Dose Admin Amino Acids/ Glycerin/ Electrolytes 1,000 ml @ 80 mls/hr [id number] IV 08/11/20 12:30 08/12/20 07:49 Justifications for Admission Other Justification Acute Parotitis ALISE MCKEON MD Aug 12, 2020 09:46
--- NOTE | 2020-08-12 10:48 | PDOC ---
Infectious Disease Note Subjective Subjective pt is awake mumbles few words ROS ROS No nausea vomiting diarrhea fever has improved Vital Sign Vital Signs Vital Signs Date Time Temp Pulse Resp B/P (MAP) Pulse Ox O2 Delivery O2 Flow Rate FiO2 08/12/20 08:00 Room Air 08/12/20 07:00 98.4 71 16 137/75 (95) 96 98.4 Physical Exam PHYSICAL EXAM GENERAL: Ill-appearing, cachectic male, lying in bed, in no acute distress, on room air. HEENT: Normocephalic, atraumatic. Right-sided swelling, redness, erythema starting from the temporal area, going down the submandibular area, tenderness present. Poor dentition. NECK: Supple. LUNGS: Clear bilaterally. No wheezing. HEART: S1, S2, tachycardia. ABDOMEN: Soft, nontender, nondistended. EXTREMITIES: No edema, no cyanosis. DERMATOLOGIC: Warm and dry. No generalized rash. PSYCHIATRIC: Unable to assess due to underlying dementia. PSYCHIATRIC: Calm. Labs Lab Laboratory Tests Test 08/11/20 12:06 08/11/20 20:51 08/12/20 09:12 Glucose (Fingerstick) 117 mg/dL (70-99) 132 mg/dL (70-99) 140 mg/dL (70-99) Micro BLOOD CULTURE LC Final Final GRAM POSITIVE COCCI FINAL ID= [STAPHYLOCOCCUS AUREUS (MRSA)] STAPHYLOCOCCUS AUREUS (MRSA) ANTIMICROBIAL SUSCEPTIBILITY Final Comment POS HANG TYPE 38 STAPHYLOCOCCUS AUREUS (MRSA) ANTIBIOTIC RESULT INTERPRETATION AZITHROMYCIN >4 R CLINDAMYCIN 0.5 R* CEFOXITIN SCREEN >4 POS CIPROFLOXACIN >2 R CEFTAROLINE <=0.5 S ERYTHROMYCIN >4 R GENTAMICIN <=4 S INDUCIBLE CLINDAMYCIN >4/0.5 POS LINEZOLID 2 S LEVOFLOXACIN 4 I OXACILLIN >2 R PENICILLIN >2 R* RIFAMPIN <=1 S TRIMETHOPRIM/SULFAMETHOXAZOLE <=0.5/9.5 S TETRACYCLINE >8 R VANCOMYCIN 2 S Unless otherwise specified, Testing Performed by: [address] [address] For Inquires, the Physician may contact the Microbiology department at [phone] Objective Assessment IMPRESSION: 1. Right facial cellulitis. 2. Right parotitis. 3. Poor dentition. 4. Alzheimer's dementia. 5. COVID-19 infection on room air, diagnosed 07/21/2020 at [facility]. 6. Fever. 7. Leukocytosis. 8. Diabetes mellitus 2. 9. Hypernatremia. 10. Acute kidney injury. 11 staph aureus bacteremia/MRSA 08/08/20 Plan Plan of Care cont antibiotics cont supportive care Patient DNR/DNI Repeat cultures pending ILIA LOTT MD Aug 12, 2020 10:48
[2020-08-12 11:00] VITALS: BP 154/85
[2020-08-12] MEDS: DAPTOmycin (GENERIC) IVPB 350 MG in IV NORMAL SALINE 50ML 50 ML IV SCH (13:16)
[2020-08-12 15:00] VITALS: BP 149/86
[2020-08-12 19:00] VITALS: BP 139/83
[2020-08-12] MEDS: ENOXAPARIN 40 MG/0.4 ML SYRINGE. SQ SCH (20:46)
[2020-08-12 23:52] VITALS: BP 151/86
[2020-08-13] MEDS: PIPERACILLIN/TAZOBACTAM 3.375 GM in IV NORMAL SALINE 50ML 50 ML IV SCH ×4 (00:15→18:19)
[2020-08-13] MEDS: AMINO AC 3%/ELECTROLYTE/GLYCER 1,000 ML IV SCH ×3 (02:00→15:07)
[2020-08-13 03:00] VITALS: BP 147/83
[2020-08-13 07:40] VITALS: BP 136/78
[2020-08-13] MEDS: CHLORHEXIDINE 0.12% 15 ML MOUTHWASH. SWSP SCH ×2 (07:45→22:17)
[2020-08-13] MEDS: INSULIN LISPRO 300 UNITS/3 ML VIAL. SQ SCH ×3 (08:00→17:00)
--- NOTE | 2020-08-13 09:39 | PDOC ---
Infectious Disease Note Subjective Subjective pt is awake mumbles few words ROS ROS No nausea vomiting diarrhea or fever Vital Sign Vital Signs Vital Signs Date Time Temp Pulse Resp B/P (MAP) Pulse Ox O2 Delivery O2 Flow Rate FiO2 08/13/20 07:40 98.2 67 19 136/78 (97) 97 Room Air 98.2 Physical Exam PHYSICAL EXAM GENERAL: Ill-appearing, cachectic male, lying in bed, in no acute distress, on room air. HEENT: Normocephalic, atraumatic. Right-sided swelling, redness, erythema starting from the temporal area, going down the submandibular area, tenderness present. Poor dentition. NECK: Supple. LUNGS: Clear bilaterally. No wheezing. HEART: S1, S2, tachycardia. ABDOMEN: Soft, nontender, nondistended. EXTREMITIES: No edema, no cyanosis. DERMATOLOGIC: Warm and dry. No generalized rash. PSYCHIATRIC: Unable to assess due to underlying dementia. PSYCHIATRIC: Calm. Labs Lab Laboratory Tests Test 08/12/20 13:36 08/12/20 18:18 08/12/20 20:34 08/13/20 07:11 Glucose (Fingerstick) 126 mg/dL (70-99) 130 mg/dL (70-99) 125 mg/dL (70-99) 134 mg/dL (70-99) Micro BLOOD CULTURE LC Final Final GRAM POSITIVE COCCI FINAL ID= [STAPHYLOCOCCUS AUREUS (MRSA)] STAPHYLOCOCCUS AUREUS (MRSA) ANTIMICROBIAL SUSCEPTIBILITY Final Comment POS HANG TYPE 38 STAPHYLOCOCCUS AUREUS (MRSA) ANTIBIOTIC RESULT INTERPRETATION AZITHROMYCIN >4 R CLINDAMYCIN 0.5 R* CEFOXITIN SCREEN >4 POS CIPROFLOXACIN >2 R CEFTAROLINE <=0.5 S ERYTHROMYCIN >4 R GENTAMICIN <=4 S INDUCIBLE CLINDAMYCIN >4/0.5 POS LINEZOLID 2 S LEVOFLOXACIN 4 I OXACILLIN >2 R PENICILLIN >2 R* RIFAMPIN <=1 S TRIMETHOPRIM/SULFAMETHOXAZOLE <=0.5/9.5 S TETRACYCLINE >8 R VANCOMYCIN 2 S Unless otherwise specified, Testing Performed by: [address] [address] For Inquires, the Physician may contact the Microbiology department at [phone] Objective Assessment IMPRESSION: 1. Right facial cellulitis. 2. Right parotitis. 3. Poor dentition. 4. Alzheimer's dementia. 5. COVID-19 infection on room air, diagnosed 07/[facility]/2020 at [facility]. 6. Fever. 7. Leukocytosis. 8. Diabetes mellitus 2. 9. Hypernatremia. 10. Acute kidney injury. 11 staph aureus bacteremia/MRSA 08/08/20 Plan Plan of Care cont antibiotics cont supportive care Patient DNR/DNI Repeat cultures pending ILIA LOTT MD Aug 13, 2020 09:39
[2020-08-13 10:37] VITALS: BP 154/81
--- NOTE | 2020-08-13 13:13 | PDOC ---
[facility] PROGRESS NOTE Date of Service DOS: DATE: 08/13/20 TIME: 13:12 Chief Complaint Chief Complaint A/P: MRSA bacteremia - on daptomycin Right facial cellulitis. Right parotitis. Poor dentition. Alzheimer's dementia. COVID-19 infection [facility] air[facility] Sepsis - Fever and Leukocytosis Diabetes mellitus 2. Hypernatremia. Acute kidney injury. Dysphagia FEN - IVF PPX - lovenox CODE - DNR/DNI Dispo - inpatient History of Present Illness History of Present Illness Mr Martinez is a 65 year old male past medical history Alzheimer's dementia--Covid + July 21 presents for evaluation of right-sided facial swelling. History obtained from EMS they state swelling started approximately 1 day prior to admit. Per EMS [facility] states patient is having difficulty eating /drinking due to swelling. No history of fever chills nausea vomiting. On exam patient is unable to provide any history. His vital signs are stable. Patient has swelling along the right parotid and some mandibular glands. Trenton ruiz has diffuse poor dentition. 08/10: Swelling improved. Febrile to 101.7 F last 24 hours T-max. Minimal shortness of breath. Facial pain. Not swallowing. 08/11: Afebrile overnight. Swelling improved. trying to vocalize more and attempting to swallow today 08/12: Afebrile overnight. Not on O2. WBC 20 3K. Final blood cultures with MRSA. On daptomycin. Facial swelling improved. Still not taking p.o. or following instructions well. Afebrile. Still requiring O2. He is mumbling follows some commands. Facial swelling minimally improved start taking p.o. very well. Vitals/I&O Vitals/I&O: Vital Signs Date Time Temp Pulse Resp B/P (MAP) Pulse Ox O2 Delivery O2 Flow Rate FiO2 08/13/20 10:37 96.9 70 18 154/81 (105) 96 Room Air 96.9 I & O 08/12/20 08/12/20 08/13/20 15:00 23:00 07:00 Intake Total 0 ml 0 ml 0 ml Balance 0 ml 0 ml 0 ml Physical Exam Physical Exam: GENERAL: Ill-appearing, cachectic male, lying in bed, in no acute distress, on room air. HEENT: Normocephalic, atraumatic. Right-sided swelling, redness, erythema starting from the temporal area, going down the submandibular area, tenderness present. Poor dentition. NECK: Supple. LUNGS: Clear bilaterally. No wheezing. HEART: S1, S2, tachycardia. ABDOMEN: Soft, nontender, nondistended. EXTREMITIES: No edema, no cyanosis. DERMATOLOGIC: Warm and dry. No generalized rash. PSYCHIATRIC: Unable to assess due to underlying dementia. PSYCHIATRIC: Calm. Labs Labs: Laboratory Tests Test 08/12/20 13:36 08/12/20 18:18 08/12/20 20:34 08/13/20 07:11 Glucose (Fingerstick) 126 mg/dL (70-99) 130 mg/dL (70-99) 125 mg/dL (70-99) 134 mg/dL (70-99) Test 08/13/20 11:35 Glucose (Fingerstick) 121 mg/dL (70-99) Assessment and Plan Assessmemt and Plan Problems Medical Problems: (1) COVID-19 Status: Acute (2) Dementia Status: Acute (3) Facial swelling Status: Acute (4) Leukocytosis Status: Acute (5) Parotitis, acute Status: Acute Comment Review of Relevant I have reviewed the following items jennifer (where applicable) has been applied. Justifications for Admission Other Justification Acute Parotitis ALISE MCKEON MD Aug 13, 2020 13:13
[2020-08-13] MEDS: DAPTOmycin (GENERIC) IVPB 350 MG in IV NORMAL SALINE 50ML 50 ML IV SCH (13:17)
[2020-08-13 15:04] VITALS: BP 148/87
[2020-08-13 19:00] VITALS: BP 169/86
[2020-08-13] MEDS: ENOXAPARIN 40 MG/0.4 ML SYRINGE. SQ SCH (22:17)
[2020-08-13 23:00] VITALS: BP 161/79
[2020-08-14] MEDS: PIPERACILLIN/TAZOBACTAM 3.375 GM in IV NORMAL SALINE 50ML 50 ML IV SCH ×3 (00:16→11:58)
[2020-08-14 03:00] VITALS: BP 141/81
[2020-08-14 04:54] LABS: BASO # 0.1 x10^3/uL (0.0-0.2); BASO % 1 % (0-3); EOS # 0.2 x10^3/uL (0.0-0.7); EOS % 3 % (0-3); HEMATOCRIT 29.4 % (39.0-53.0); HEMOGLOBIN 9.6 g/dL (13.0-17.5); LYMPH # 1.1 x10^3/uL (1.0-4.8); LYMPH % 14 % (24-48); MEAN CORPUSCULAR HEMOGLOBIN 28 pg (25-35); MEAN CORPUSCULAR HGB CONC 33 g/dL (31-37); MEAN CORPUSCULAR VOLUME 86 fL (79-100); MONO # 0.7 x10^3/uL (0.0-1.1); MONO % 8 % (0-9); NEUT # 5.7 x10^3/uL (1.8-7.7); NEUT % 74 % (31-73); PLATELET COUNT 210 x10^3/uL (140-400); RED BLOOD COUNT 3.43 x10^6/uL (4.30-5.70); RED CELL DISTRIBUTION WIDTH 14.5 % (11.5-14.5); WHITE BLOOD COUNT 7.7 x10^3/uL (4.0-11.0)
[2020-08-14 05:21] LABS: ALBUMIN/GLOBULIN RATIO 0.6 (1.0-1.7); CALCIUM 8.3 mg/dL (8.5-10.1); CREATININE 0.7 mg/dL (0.7-1.3); GFR 112.8; POTASSIUM 3.7 mmol/L (3.5-5.1); TOTAL BILIRUBIN 0.6 mg/dL (0.2-1.0); TOTAL PROTEIN 5.3 g/dL (6.4-8.2)
[2020-08-14] MEDS: AMINO AC 3%/ELECTROLYTE/GLYCER 1,000 ML IV SCH (05:30)
[2020-08-14] MEDS: INSULIN LISPRO 300 UNITS/3 ML VIAL. SQ SCH ×2 (07:29→11:58)
[2020-08-14 07:58] VITALS: BP 150/85
[2020-08-14] MEDS: CHLORHEXIDINE 0.12% 15 ML MOUTHWASH. SWSP SCH (08:16)
--- NOTE | 2020-08-14 09:56 | PDOC ---
Infectious Disease Note Subjective Subjective pt is awake mumbles few words ROS ROS No nausea vomiting diarrhea or fever Vital Sign Vital Signs Vital Signs Date Time Temp Pulse Resp B/P (MAP) Pulse Ox O2 Delivery O2 Flow Rate FiO2 08/14/20 07:58 97.0 66 18 150/85 (106) 97 Room Air 97.0 Physical Exam PHYSICAL EXAM GENERAL: Ill-appearing, cachectic male, lying in bed, in no acute distress, on room air. HEENT: Normocephalic, atraumatic. Right-sided swelling, redness, erythema starting from the temporal area, going down the submandibular area, tenderness present. Poor dentition. NECK: Supple. LUNGS: Clear bilaterally. No wheezing. HEART: S1, S2, tachycardia. ABDOMEN: Soft, nontender, nondistended. EXTREMITIES: No edema, no cyanosis. DERMATOLOGIC: Warm and dry. No generalized rash. PSYCHIATRIC: Unable to assess due to underlying dementia. PSYCHIATRIC: Calm. Labs Lab Laboratory Tests Test 08/13/20 11:35 08/13/20 18:30 08/13/20 20:36 08/14/20 04:30 Glucose (Fingerstick) 121 mg/dL (70-99) 115 mg/dL (70-99) 122 mg/dL (70-99) White Blood Count 7.7 x10^3/uL (4.0-11.0) Red Blood Count 3.43 x10^6/uL (4.30-5.70) Hemoglobin 9.6 g/dL (13.0-17.5) Hematocrit 29.4 % (39.0-53.0) Mean Corpuscular Volume 86 fL (79-100) Mean Corpuscular Hemoglobin 28 pg (25-35) Mean Corpuscular Hemoglobin Concent 33 g/dL (31-37) Red Cell Distribution Width 14.5 % (11.5-14.5) Platelet Count 210 x10^3/uL (140-400) Neutrophils (%) (Auto) 74 % (31-73) Lymphocytes (%) (Auto) 14 % (24-48) Monocytes (%) (Auto) 8 % (0-9) Eosinophils (%) (Auto) 3 % (0-3) Basophils (%) (Auto) 1 % (0-3) Neutrophils # (Auto) 5.7 x10^3/uL (1.8-7.7) Lymphocytes # (Auto) 1.1 x10^3/uL (1.0-4.8) Monocytes # (Auto) 0.7 x10^3/uL (0.0-1.1) Eosinophils # (Auto) 0.2 x10^3/uL (0.0-0.7) Basophils # (Auto) 0.1 x10^3/uL (0.0-0.2) Sodium Level 145 mmol/L (136-145) Potassium Level 3.7 mmol/L (3.5-5.1) Chloride Level 111 mmol/L (98-107) Carbon Dioxide Level 25 mmol/L (21-32) Anion Gap 9 (6-14) Blood Urea Nitrogen 27 mg/dL (8-26) Creatinine 0.7 mg/dL (0.7-1.3) Estimated GFR (Cockcroft-Gault) 112.8 BUN/Creatinine Ratio 39 (6-20) Glucose Level 121 mg/dL (70-99) Calcium Level 8.3 mg/dL (8.5-10.1) Total Bilirubin 0.6 mg/dL (0.2-1.0) Aspartate Amino Transf (AST/SGOT) 16 U/L (15-37) Alanine Aminotransferase (ALT/SGPT) 18 U/L (16-63) Alkaline Phosphatase 66 U/L (46-116) Creatine Kinase 51 U/L (39-308) Total Protein 5.3 g/dL (6.4-8.2) Albumin 2.0 g/dL (3.4-5.0) Albumin/Globulin Ratio 0.6 (1.0-1.7) Test 08/14/20 07:12 Glucose (Fingerstick) 131 mg/dL (70-99) Micro BLOOD CULTURE LC Final Final GRAM POSITIVE COCCI FINAL ID= [STAPHYLOCOCCUS AUREUS (MRSA)] STAPHYLOCOCCUS AUREUS (MRSA) ANTIMICROBIAL SUSCEPTIBILITY Final Comment POS HANG TYPE 38 STAPHYLOCOCCUS AUREUS (MRSA) ANTIBIOTIC RESULT INTERPRETATION AZITHROMYCIN >4 R CLINDAMYCIN 0.5 R* CEFOXITIN SCREEN >4 POS CIPROFLOXACIN >2 R CEFTAROLINE <=0.5 S ERYTHROMYCIN >4 R GENTAMICIN <=4 S INDUCIBLE CLINDAMYCIN >4/0.5 POS LINEZOLID 2 S LEVOFLOXACIN 4 I OXACILLIN >2 R PENICILLIN >2 R* RIFAMPIN <=1 S TRIMETHOPRIM/SULFAMETHOXAZOLE <=0.5/9.5 S TETRACYCLINE >8 R VANCOMYCIN 2 S Unless otherwise specified, Testing Performed by: [address] [address] For Inquires, the Physician may contact the Microbiology department at [phone] Objective Assessment IMPRESSION: 1. Right facial cellulitis. 2. Right parotitis. 3. Poor dentition. 4. Alzheimer's dementia. 5. COVID-19 infection on room air, diagnosed 07/21/2020 at [facility]. 6. Fever. 7. Leukocytosis. 8. Diabetes mellitus 2. 9. Hypernatremia. 10. Acute kidney injury. 11 staph aureus bacteremia/MRSA 08/08/20 Plan Plan of Care cont antibiotics cont supportive care Patient DNR/DNI Repeat cultures negative so far Overall prognosis poor consider hospice ILIA LOTT MD Aug 14, 2020 09:56
--- NOTE | 2020-08-14 10:37 | PDOC ---
[facility] [facility] PROGRESS NOTE Date of Service DOS: DATE: 08/14/20 TIME: 10:25 Chief Complaint Chief Complaint A/P: MRSA bacteremia - on daptomycin Right facial cellulitis. Right parotitis. Poor dentition. Alzheimer's dementia. COVID-19 infection on room air, diagnosed 07/21/2020 at assisted. Sepsis - Fever and Leukocytosis Diabetes mellitus 2. Hypernatremia. Acute kidney injury. Dysphagia FEN - IVF PPX - lovenox CODE - DNR/DNI Dispo - inpatient History of Present Illness History of Present Illness Mr Martinez is a 65 year old male past medical history Alzheimer's dementia--Covid + July 21 presents for evaluation of right-sided facial swelling. History obtained from EMS they state swelling started approximately 1 day prior to admit. Per EMS assisted states patient is having difficulty eating /drinking due to swelling. No history of fever chills nausea vomiting. On exam patient is unable to provide any history. His vital signs are stable. Patient has swelling along the right parotid and some mandibular glands. Trenton ruiz has diffuse poor dentition. 08/10: Swelling improved. Febrile to 101.7 F last 24 hours T-max. Minimal shortness of breath. Facial pain. Not swallowing. 08/11: Afebrile overnight. Swelling improved. trying to vocalize more and attempting to swallow today 08/12: Afebrile overnight. Not on O2. WBC 20.3K. Final blood cultures with MRSA. On daptomycin. Facial swelling improved. Still not taking p.o. or following instructions well. 08/13: Afebrile. Still requiring O2. He is mumbling follows some commands. Facial swelling minimally improved start taking p.o. very well. Afebrile. Still requiring O2. Following some commands. D/w his , Marissa, she notes he has had a steep decline with his Alzheimer's dementia over the last year and as of June 2020 had been a long-term long-term home resident and with his failure to progress despite a week of appropriate antibiotic therapy and IV nutrition he is still not showing interest in food or drink and she would like a referral for inpatient hospice care. Vitals/I&O Vitals/I&O: Vital Signs Date Time Temp Pulse Resp B/P (MAP) Pulse Ox O2 Delivery O2 Flow Rate FiO2 08/14/20 08:00 Room Air 08/14/20 07:58 97.0 66 18 150/85 (106) 97 97.0 I & O 08/13/20 08/13/20 08/14/20 14:59 22:59 06:59 Intake Total 0 ml 0 ml 0 ml Balance 0 ml 0 ml 0 ml Physical Exam Physical Exam: GENERAL: Ill-appearing, cachectic male, lying in bed, in no acute distress, on room air. HEENT: Normocephalic, atraumatic. Right-sided swelling, redness, erythema starting from the temporal area, going down the submandibular area, tenderness present. Poor dentition. NECK: Supple. LUNGS: Clear bilaterally. No wheezing. HEART: S1, S2, tachycardia. ABDOMEN: Soft, nontender, nondistended. EXTREMITIES: No edema, no cyanosis. DERMATOLOGIC: Warm and dry. No generalized rash. PSYCHIATRIC: Unable to assess due to underlying dementia. PSYCHIATRIC: Calm. Labs Labs: Laboratory Tests Test 08/13/20 11:35 08/13/20 18:30 08/13/20 20:36 08/14/20 04:30 Glucose (Fingerstick) 121 mg/dL (70-99) 115 mg/dL (70-99) 122 mg/dL (70-99) White Blood Count 7.7 x10^3/uL (4.0-11.0) Red Blood Count 3.43 x10^6/uL (4.30-5.70) Hemoglobin 9.6 g/dL (13.0-17.5) Hematocrit 29.4 % (39.0-53.0) Mean Corpuscular Volume 86 fL (79-100) Mean Corpuscular Hemoglobin 28 pg (25-35) Mean Corpuscular Hemoglobin Concent 33 g/dL (31-37) Red Cell Distribution Width 14.5 % (11.5-14.5) Platelet Count 210 x10^3/uL (140-400) Neutrophils (%) (Auto) 74 % (31-73) Lymphocytes (%) (Auto) 14 % (24-48) Monocytes (%) (Auto) 8 % (0-9) Eosinophils (%) (Auto) 3 % (0-3) Basophils (%) (Auto) 1 % (0-3) Neutrophils # (Auto) 5.7 x10^3/uL (1.8-7.7) Lymphocytes # (Auto) 1.1 x10^3/uL (1.0-4.8) Monocytes # (Auto) 0.7 x10^3/uL (0.0-1.1) Eosinophils # (Auto) 0.2 x10^3/uL (0.0-0.7) Basophils # (Auto) 0.1 x10^3/uL (0.0-0.2) Sodium Level 145 mmol/L (136-145) Potassium Level 3.7 mmol/L (3.5-5.1) Chloride Level 111 mmol/L (98-107) Carbon Dioxide Level 25 mmol/L (21-32) Anion Gap 9 (6-14) Blood Urea Nitrogen 27 mg/dL (8-26) Creatinine 0.7 mg/dL (0.7-1.3) Estimated GFR (Cockcroft-Gault) 112.8 BUN/Creatinine Ratio 39 (6-20) Glucose Level 121 mg/dL (70-99) Calcium Level 8.3 mg/dL (8.5-10.1) Total Bilirubin 0.6 mg/dL (0.2-1.0) Aspartate Amino Transf (AST/SGOT) 16 U/L (15-37) Alanine Aminotransferase (ALT/SGPT) 18 U/L (16-63) Alkaline Phosphatase 66 U/L (46-116) Creatine Kinase 51 U/L (39-308) Total Protein 5.3 g/dL (6.4-8.2) Albumin 2.0 g/dL (3.4-5.0) Albumin/Globulin Ratio 0.6 (1.0-1.7) Test 08/14/20 07:12 Glucose (Fingerstick) 131 mg/dL (70-99) Assessment and Plan Assessmemt and Plan Problems Medical Problems: (1) COVID-19 Status: Acute (2) Dementia Status: Acute (3) Facial swelling Status: Acute (4) Leukocytosis Status: Acute (5) Parotitis, acute Status: Acute Comment Review of Relevant I have reviewed the following items jennifer (where applicable) has been applied. Justifications for Admission Other Justification Acute Parotitis ALISE MCKEON MD Aug 14, 2020 10:37
[2020-08-14 11:00] VITALS: BP 142/69
[2020-08-14] MEDS: DAPTOmycin (GENERIC) IVPB 350 MG in IV NORMAL SALINE 50ML 50 ML IV SCH (11:58)
--- NOTE | 2020-08-14 14:40 | NUR ---
Pt being discharged to in-patient hospice with [facility]. Admitting notified.
--- NOTE | 2020-08-14 15:04 | PDOC3 ---
Discharge Summary Visit Information Date of Admission: Aug 08, 2020 Date of Discharge: Aug 14, 2020 Admitting Diagnosis: COVID 19 Final Diagnosis Problems Medical Problems: (1) COVID-19 Status: Acute (2) Dementia Status: Acute (3) Facial swelling Status: Acute (4) Leukocytosis Status: Acute (5) Parotitis, acute Status: Acute Brief Hospital Course Allergies Allergies Coded Allergies Type Severity Reaction Last Updated Verified I S O L A T I O N *CONTACT* Allergy Unknown 08/13/20 Yes No Known Medication Allergies Allergy Unknown 08/13/20 Yes Vital Signs Vital Signs Date Time Temp Pulse Resp B/P (MAP) Pulse Ox O2 Delivery O2 Flow Rate FiO2 08/14/20 11:00 97.5 73 24 142/69 (93) 96 Room Air 97.5 Lab Results Laboratory Tests Test 08/12/20 18:18 08/12/20 20:34 08/13/20 07:11 08/13/20 11:35 Glucose (Fingerstick) 130 mg/dL (70-99) 125 mg/dL (70-99) 134 mg/dL (70-99) 121 mg/dL (70-99) Test 08/13/20 18:30 08/13/20 20:36 08/14/20 04:30 08/14/20 07:12 Glucose (Fingerstick) 115 mg/dL (70-99) 122 mg/dL (70-99) 131 mg/dL (70-99) White Blood Count 7.7 x10^3/uL (4.0-11.0) Red Blood Count 3.43 x10^6/uL (4.30-5.70) Hemoglobin 9.6 g/dL (13.0-17.5) Hematocrit 29.4 % (39.0-53.0) Mean Corpuscular Volume 86 fL (79-100) Mean Corpuscular Hemoglobin 28 pg (25-35) Mean Corpuscular Hemoglobin Concent 33 g/dL (31-37) Red Cell Distribution Width 14.5 % (11.5-14.5) Platelet Count 210 x10^3/uL (140-400) Neutrophils (%) (Auto) 74 % (31-73) Lymphocytes (%) (Auto) 14 % (24-48) Monocytes (%) (Auto) 8 % (0-9) Eosinophils (%) (Auto) 3 % (0-3) Basophils (%) (Auto) 1 % (0-3) Neutrophils # (Auto) 5.7 x10^3/uL (1.8-7.7) Lymphocytes # (Auto) 1.1 x10^3/uL (1.0-4.8) Monocytes # (Auto) 0.7 x10^3/uL (0.0-1.1) Eosinophils # (Auto) 0.2 x10^3/uL (0.0-0.7) Basophils # (Auto) 0.1 x10^3/uL (0.0-0.2) Sodium Level 145 mmol/L (136-145) Potassium Level 3.7 mmol/L (3.5-5.1) Chloride Level 111 mmol/L (98-107) Carbon Dioxide Level 25 mmol/L (21-32) Anion Gap 9 (6-14) Blood Urea Nitrogen 27 mg/dL (8-26) Creatinine 0.7 mg/dL (0.7-1.3) Estimated GFR (Cockcroft-Gault) 112.8 BUN/Creatinine Ratio 39 (6-20) Glucose Level 121 mg/dL (70-99) Calcium Level 8.3 mg/dL (8.5-10.1) Total Bilirubin 0.6 mg/dL (0.2-1.0) Aspartate Amino Transf (AST/SGOT) 16 U/L (15-37) Alanine Aminotransferase (ALT/SGPT) 18 U/L (16-63) Alkaline Phosphatase 66 U/L (46-116) Creatine Kinase 51 U/L (39-308) Total Protein 5.3 g/dL (6.4-8.2) Albumin 2.0 g/dL (3.4-5.0) Albumin/Globulin Ratio 0.6 (1.0-1.7) Test 08/14/20 11:37 Glucose (Fingerstick) 137 mg/dL (70-99) Laboratory Tests Test 08/13/20 18:30 08/13/20 20:36 08/14/20 04:30 08/14/20 07:12 Glucose (Fingerstick) 115 mg/dL (70-99) 122 mg/dL (70-99) 131 mg/dL (70-99) White Blood Count 7.7 x10^3/uL (4.0-11.0) Red Blood Count 3.43 x10^6/uL (4.30-5.70) Hemoglobin 9.6 g/dL (13.0-17.5) Hematocrit 29.4 % (39.0-53.0) Mean Corpuscular Volume 86 fL (79-100) Mean Corpuscular Hemoglobin 28 pg (25-35) Mean Corpuscular Hemoglobin Concent 33 g/dL (31-37) Red Cell Distribution Width 14.5 % (11.5-14.5) Platelet Count 210 x10^3/uL (140-400) Neutrophils (%) (Auto) 74 % (31-73) Lymphocytes (%) (Auto) 14 % (24-48) Monocytes (%) (Auto) 8 % (0-9) Eosinophils (%) (Auto) 3 % (0-3) Basophils (%) (Auto) 1 % (0-3) Neutrophils # (Auto) 5.7 x10^3/uL (1.8-7.7) Lymphocytes # (Auto) 1.1 x10^3/uL (1.0-4.8) Monocytes # (Auto) 0.7 x10^3/uL (0.0-1.1) Eosinophils # (Auto) 0.2 x10^3/uL (0.0-0.7) Basophils # (Auto) 0.1 x10^3/uL (0.0-0.2) Sodium Level 145 mmol/L (136-145) Potassium Level 3.7 mmol/L (3.5-5.1) Chloride Level 111 mmol/L (98-107) Carbon Dioxide Level 25 mmol/L (21-32) Anion Gap 9 (6-14) Blood Urea Nitrogen 27 mg/dL (8-26) Creatinine 0.7 mg/dL (0.7-1.3) Estimated GFR (Cockcroft-Gault) 112.8 BUN/Creatinine Ratio 39 (6-20) Glucose Level 121 mg/dL (70-99) Calcium Level 8.3 mg/dL (8.5-10.1) Total Bilirubin 0.6 mg/dL (0.2-1.0) Aspartate Amino Transf (AST/SGOT) 16 U/L (15-37) Alanine Aminotransferase (ALT/SGPT) 18 U/L (16-63) Alkaline Phosphatase 66 U/L (46-116) Creatine Kinase 51 U/L (39-308) Total Protein 5.3 g/dL (6.4-8.2) Albumin 2.0 g/dL (3.4-5.0) Albumin/Globulin Ratio 0.6 (1.0-1.7) Test 08/14/20 11:37 Glucose (Fingerstick) 137 mg/dL (70-99) Brief Hospital Course Mr Martinez is a 65 year old male past medical history Alzheimer's dementia--Covid + July 21 presents for evaluation of right-sided facial swelling. History obtained from EMS they state swelling started approximately 1 day prior to admit. Per EMS group home states patient is having difficulty eating /drinking due to swelling. No history of fever chills nausea vomiting. On exam patient is unable to provide any history. His vital signs are stable. Patient has swelling along the right parotid and some mandibular glands. Pat ient has diffuse poor dentition. 08/10: Swelling improved. Febrile to 101.7 F last 24 hours T-max. Minimal shortness of breath. Facial pain. Not swallowing. 08/11: Afebrile overnight. Swelling improved. trying to vocalize more and attempting to swallow today 08/12: Afebrile overnight. Not on O2. WBC 20.3K. Final blood cultures with MRSA. On daptomycin. Facial swelling improved. Still not taking p.o. or following instructions well. 08/13: Afebrile. Still requiring O2. He is mumbling follows some commands. Facial swelling minimally improved start taking p.o. very well. Afebrile. Still requiring O2. Following some commands. D/w his , Marissa, she notes he has had a steep decline with his Alzheimer's dementia over the last year and as of June 2020 had been a [facility]term jail home resident and with his failure to progress despite a week of appropriate antibiotic t herapy and IV nutrition he is still not showing interest in food or drink and she would like a referral for inpatient hospice care. Consults: ID Problem list: MRSA bacteremia - on daptomycin Right facial cellulitis. Right parotitis. Poor dentition. Alzheimer's dementia. COVID-19 infection on room air, diagnosed 07/21/2020 at group home. Sepsis - Fever and Leukocytosis Diabetes mellitus 2. Hypernatremia. Acute kidney injury. Dysphagia Greater than 30 minutes spent on d/c to inpatient hospice Discharge Information Condition at Discharge: Stable Disposition/Orders: D/C to Another Facility Scheduled Apixaban (Eliquis) 5 Mg Tablet, 5 MG PO BID for dvt, (Reported) Entered as Reported by: BARBARA DAVIS RN on 08/09/20210 Last Action: New Order on 08/09/20210 by BARBARA DAVIS RN Ascorbic Acid (Vitamin C) 500 Mg Capsule.er, 1 CAP PO DAILY for COVID for 30 Days, #30 Ref 0 (Reported) Entered as Reported by: BARBARA DAVIS RN on 08/09/20301 Last Action: New Order on 08/09/20301 by BARBARA DAVIS RN Aspirin (Aspirin) 81 Mg Tab.chew, 1 TAB PO DAILY for anti-inflammatory, #30 Ref 3 (Reported) Entered as Reported by: MICHAEL SWANSON on 06/16/202043 Last Action: Reviewed on 08/09/20210 by BARBARA DAVIS RN Celecoxib (Celebrex) 200 Mg Capsule, 1 CAP PO DAILY for arthritis pain , #30 Ref 2 (Reported) LAST DOSE GIVEN: DATE:12-04-15 TIME:8:30 a.m. NEXT DOSE DUE: DATE:12-05-15 TIME:8:30 a.m. Entered as Reported by: KAYLEY JARRETT on 11/17/15 1434 Last Action: Reviewed on 08/09/20210 by BARBARA DAVIS RN Cholecalciferol (Vitamin D3) (D3-50) 50,000 Unit Capsule, 50,000 UNIT PO DAILY for COVID, (Reported) Entered as Reported by: BARBARA DAVIS RN on 08/09/20301 Last Action: New Order on 08/09/20301 by BARBARA DAVIS RN Ferrous Sulfate (Ferrous Sulfate) 325 Mg Tablet, 1 TAB PO BID for supplement, #60 Ref 3 (Reported) Entered as Reported by: BARBARA DAVIS RN on 08/09/20210 Last Action: New Order on 08/09/20210 by BARBARA DAVIS RN Fluoxetine Hcl (Fluoxetine Hcl) 40 Mg Capsule, 1 CAP PO DAILYWBKFT for depression, #30 Ref 2 (Reported) Entered as Reported by: MICHAEL SWANSON on 06/16/202043 Last Action: Reviewed on 08/09/20210 by BARBARA DAVIS RN Memantine Hcl (Namenda) 10 Mg Tablet, 1 TAB PO BID for dementia, #180 Ref 1 (Reported) Entered as Reported by: MICHAEL SWANSON on 06/16/202043 Last Action: Reviewed on 08/09/20301 by BARBARA DAVIS RN Metformin Hcl (Metformin Hcl) 1,000 Mg Tablet, 1,000 MG PO BIDWMEALS for DM, (Reported) Entered as Reported by: BARBARA DAVIS RN on 08/09/20210 Last Action: New Order on 08/09/20210 by BARBARA DAVIS RN Multivitamin (Multivitamins) 1 Each Tablet, 1 TAB PO DAILY for vitamin supplement, #90 Ref 3 (Reported) LAST DOSE GIVEN: DATE:12-04-15 TIME:8:30 a.m. NEXT DOSE DUE: DATE:12-05-15 TIME:8:30 a.m. Entered as Reported by: KAYLEY JARRETT on 11/17/15 1433 Last Action: Reviewed on 08/09/20301 by BARBARA DAVIS RN [place]-3 Fatty Acids/Fish Oil ([place] 3 Fish Oil Softgel) 1 Each Capsule.dr, 1 EACH PO DAILY for supplement, (Reported) Entered as Reported by: MICHAEL SWANSON on 06/16/202043 Last Action: Reviewed on 08/09/20210 by BARBARA DAVIS RN Pioglitazone Hcl (Pioglitazone Hcl) 30 Mg Tablet, 30 MG PO DAILY for DM, (Reported) Entered as Reported by: BARBARA DAVIS RN on 08/09/20301 Last Action: New Order on 08/09/20301 by BARBARA DAVIS RN Scheduled PRN Albuterol Sulfate (Ventolin Hfa Inhaler) 18 Gm Hfa.aer.ad, 2 PUFF INH Q4HRS PRN for SHORTNESS OF BREATH, Ref 0 (Reported) Entered as Reported by: BARBARA DAVIS RN on 1/3/21 0211 Last Action: New Order on 08/09/20210 by BARBARA DAVIS RN Bisacodyl (Dulcolax) 10 Mg Supp.rect, 1 SUPP RC DAILY PRN for CONSTIPATION for 10 Days, #10 Ref 0 (Reported) Entered as Reported by: BARBARA DAVIS RN on 08/09/20210 Last Action: New Order on 08/09/20210 by BARBARA DAVIS RN Magnesium Hydroxide (Milk Of Magnesia) 400 Mg/5 Ml Oral.susp, 30 ML PO DAILY PRN for CONSTIPATION, (Reported) Entered as Reported by: BARBARA DAVIS RN on 08/09/20210 Last Action: New Order on 08/09/20210 by BARBARA DAVIS RN Ondansetron Hcl (Zofran) 4 Mg Tablet, 4 MG PO Q4HRS PRN for NAUSEA/VOMITING, (Reported) Entered as Reported by: BARBARA DAVIS RN on 08/09/20301 Last Action: New Order on 08/09/20301 by BARBARA DAVIS RN Justicifation of Admission Dx: Justifications for Admission: Justification of Admission Dx: Yes ALISE MCKEON MD Aug 14, 2020 15:04
== END 2020-08-14 14:42 | disposition hospice, inpatient (51) | DRG 871 ==
LOC: ER 18:49 → 6 SOUTH 23:17
PROVIDERS: ADMIT Family Medicine; ATTEND Family Medicine
DX: A41.02 Sepsis due to Methicillin resistant Staphylococcus aureus (principal); U07.1 COVID-19; N17.0 Acute kidney failure with tubular necrosis; E87.0 Hyperosmolality and hypernatremia; L03.211 Cellulitis of face; K11.21 Acute sialoadenitis; E11.9 Type 2 diabetes mellitus without complications; E87.8 Other disorders of electrolyte and fluid balance, not elsewhere classified; F02.80 Dementia in other diseases classified elsewhere, unspecified severity, without behavioral disturbance, psychotic disturbance, mood disturbance, and anxiety; F32.9 Major depressive disorder, single episode, unspecified; G30.9 Alzheimer's disease, unspecified; M19.90 Unspecified osteoarthritis, unspecified site; Z66 Do not resuscitate; Z79.01 Long term (current) use of anticoagulants; Z79.82 Long term (current) use of aspirin; Z79.84 Long term (current) use of oral hypoglycemic drugs; Z79.899 Other long term (current) drug therapy; Z87.891 Personal history of nicotine dependence; Z96.659 Presence of unspecified artificial knee joint
CPT/HCPCS: 36415; 70487; 71045; 80048; 80053; 82550; 82962; 83605; 83735; 84100; 85007; 85025; 87040; 87077; 87186; 87205; 93005; 96361; 96365; J0295; J0878; J1650; J1815; J2543; J3370; J3480; J3490; J7030; J7040; Q9967; U0003; 92610-GN; 97530-GP; 99285-25; G0378

== ENCOUNTER 2020-08-14 14:48 | Inpatient (IN) | payer OTHER ==
[~2020-08-14] VITALS: Ht 172.7 cm; Wt 60.5 kg
[~2020-08-14 14:48] MED LIST changes: +APIX5TAB PO; +ASCO500C PO; +BISA10SU55 RC; +CHOL500021 PO; +FERR325T14 PO; +MAGN400O7 PO; +ONDA4TAB7 PO; +PIOG30TA62 PO; +VENTOLIN HFA18 GM INH
--- NOTE | 2020-08-14 14:54 | NUR ---
Patient admitted to hospice with [facility]. Pt , Marissa (DPOA) signed consents and is at the bedside with the patient. Precautions and rules explained to patient family, they verbalized understanding. Orders received from scientific specialist for medications for comfort. Will continue to monitor.
[2020-08-14] MEDS ORDERED: ACETAMINOPHEN 650 MG SUPP.RECT. PR PRN (15:15)
[2020-08-14] MEDS ORDERED: BISACODYL 10 MG SUPP.RECT. PR PRN (15:15)
[2020-08-14] MEDS ORDERED: MORPHINE SULFATE 2 MG/ML VIAL. IV PRN (15:15)
[2020-08-14] MEDS: MORPHINE SULFATE 2 MG/ML VIAL. IV SCH ×2 (15:28→19:54)
[2020-08-14] MEDS ORDERED: SCOPOLAMINE 1.5MG PATCH. TD SCH (15:30)
[2020-08-14 19:00] VITALS: BP 155/90
[2020-08-15] MEDS: MORPHINE SULFATE 2 MG/ML VIAL. IV SCH ×8 (00:06→23:59)
[2020-08-15 07:00] VITALS: BP 131/71
--- NOTE | 2020-08-15 07:23 | PDOC1 ---
History and Physical Date of Admission Date of Admission DATE: 08/15/20 TIME: 07:22 Identification/Chief Complaint Chief Complaint MRSA bacteremia Source Source: Caregiver, Chart review History of Present Illness History of Present Illness Mr Martinez is a 65 year old male past medical history Alzheimer's dementia--Covid + July 21 presents for evaluation of right-sided facial swelling. History obtained from EMS they state swelling started approximately 1 day prior to admit. Per EMS [facility]dc states patient is having difficulty eating /drinking due to swelling. No history of fever chills nausea vomiting. On exam patient is unable to provide any history. His vital signs are stable. Patient has swelling along the right parotid and some mandibular glands. Patient has diffuse poor dentition. Swelling improved. Febrile to 101.7 F last 24 hours T-max. Minimal shortness of breath. Facial pain. Not swallowing. WBC 20.3K. Final blood cultures with MRSA. On daptomycin. Facial swelling improved. Still not taking p.o. or following instructions well. Afebrile. Still requiring O2. Following some commands. D/w his , Marissa, she notes he has had a steep decline with his Alzheimer's dementia over the last year and as of June 2020 had been a long-term snf home resident and with his failure to progress despite a week of appropriate antibiotic thera py and IV nutrition he is still not showing interest in food or drink and she would like a referral for inpatient hospice care. He has become progressively more dyspneic and less interactive. Respiratory rate continues to be over 20 requiring increasing doses of morphine. Past Medical History Cardiovascular: HTN CENTRAL NERVOUS SYSTEM: Dementia Endocrine: Diabetes Past Surgical History Past Surgical History: No pertinent history Family History Family History: Alzheimer's Disease Social History Smoke: No ALCOHOL: none Drugs: None Current Medications Current Medications Current Medications Morphine Sulfate (Morphine Sulfate) 0.25 mg Q4HRS IV Last administered on 08/15/20at 03:54; Start 08/14/20 at 16:00 Lorazepam (Ativan Inj) 0.25 mg Q4HRS IVP Last administered on 08/15/20at 03:53; Start 08/14/20 at 16:00 Morphine Sulfate (Morphine Sulfate) 0.5 mg PRN Q1HR PRN IV PAIN; Start 08/14/20 at 15:15 Lorazepam (Ativan Inj) 0.5 mg PRN Q1HR PRN IVP ANXIETY / AGITATION; Start 08/14/20 at 15:15 Scopolamine (Transderm-Scop) 1 patch Q3DAYS TD Last administered on 08/14/20at 15:28; Start 08/14/20 at 15:30 Acetaminophen (Tylenol Supp) 650 mg PRN Q4HRS PRN [place] MILD PAIN / TEMP > 100.3'F; Start 08/14/20 at 15:15 Bisacodyl (Dulcolax Supp) 10 mg PRN DAILY PRN [place] CONSTIPATION; Start 08/14/20 at 15:15 Active Scripts Active Reported Zofran (Ondansetron Hcl) 4 Mg Tablet 4 Mg PO Q4HRS PRN D3-50 (Cholecalciferol (Vitamin D3)) 50,000 Unit Capsule 50,000 Unit PO DAILY Vitamin C (Ascorbic Acid) 500 Mg Capsule.er 1 Cap PO DAILY 30 Days Pioglitazone Hcl 30 Mg Tablet 30 Mg PO DAILY Milk Of Magnesia (Magnesium Hydroxide) 400 Mg/5 Ml Oral.susp 30 Ml PO DAILY PRN Metformin Hcl 1,000 Mg Tablet 1,000 Mg PO BIDWMEALS Ferrous Sulfate 325 Mg Tablet 1 Tab PO BID Eliquis (Apixaban) 5 Mg Tablet 5 Mg PO BID Dulcolax (Bisacodyl) 10 Mg Supp.rect 1 Supp RC DAILY PRN 10 Days Ventolin Hfa Inhaler (Albuterol Sulfate) 18 Gm Hfa.aer.ad 2 Puff INH Q4HRS PRN Aspirin 81 Mg Tab.chew 1 Tab PO DAILY [place] 3 Fish Oil Softgel ([place]-3 Fatty Acids/Fish Oil) 1 Each Capsule.dr 1 Each PO DAILY Namenda (Memantine Hcl) 10 Mg Tablet 1 Tab PO BID Fluoxetine Hcl 40 Mg Capsule 1 Cap PO DAILYWBKFT Celebrex (Celecoxib) 200 Mg Capsule 1 Cap PO DAILY LAST DOSE GIVEN: DATE:12-04-15 TIME:8:30 a.m. NEXT DOSE DUE: DATE:12-05-15 TIME:8:30 a.m. Multivitamins (Multivitamin) 1 Each Tablet 1 Tab PO DAILY LAST DOSE GIVEN: DATE:12-04-15 TIME:8:30 a.m. NEXT DOSE DUE: DATE:12-05-15 TIME:8:30 a.m. Allergies Allergies: Coded Allergies: I S O L A T I O N *CONTACT* (Verified Allergy, Unknown, 08/13/20) mrsa No Known Medication Allergies (Verified Allergy, Unknown, 08/13/20) ROS Review of System Unable to obtain due to non-verbal status General: No: Chills, Night Sweats, Fatigue, Malaise, Appetite, Other PSYCHOLOGICAL ROS: No: Anxiety, Behavioral Disorder, Concentration difficultie, Decreased libido, Depression, Disorientation, Hallucinations, Hostility, Irritablity, Memory difficulties, Mood Swings, Obsessive thoughts, Physical abuse, Sexual abuse, Sleep disturbances, Suicidal ideation, Other Eyes: No Blurry vision, No Decreased vision, No Double vision, No Dry eyes, No Excessive tearing, No Eye Pain, No Itchy Eyes, No Loss of vision, No Photophobia, No Scotomata, No Uses contacts, No Uses glasses, No Other HEENT: No: Heacaches, Visual Changes, Hearing change, Nasal congestion, Nasal discharge, Oral lesions, Sinus pain, Sore Throat, Epistaxis, Sneezing, Snoring, Tinnitus, Vertigo, Vocal changes, Other ALLERGY AND IMMUNOLOGY: No: Hives, Insect Bite Sensitivity, Itchy/Watery Eyes, Nasal Congestion, Post Nasal Drip, Seasonal Allergies, Other Hematological and Lymphatic: No: Bleeding Problems, Blood Clots, Blood Transfusions, Brusing, Night Sweats, Pallor, Swollen Lymph Nodes, Other ENDOCRINE: No: Breast Changes, Galactorrhea, Hair Pattern Changes, Hot Flashes, Malaise/lethargy, Mood Swings, Palpitations, Polydipsia/polyuria, Skin Changes, Temperature Intolerance, Unexpected Weight Changes, Other Breast: No New/Changing Breast Lumps, No Nipple changes, No Nipple discharge, No Other Respiratory: No: Cough, Hemoptysis, Orthopnea, Pleuritic Pain, Shortness of breath, SOB with excertion, Sputum Changes, Stridor, Tachypnea, Wheezing, Other Cardiovascular: No Chest Pain, No Palpitations, No Orthopnea, No Paroxysmal Noc. Dyspnea, No Edema, No Lt Headedness, No Other Gastrointestinal: No Nausea, No Vomiting, No Abdominal Pain, No Diarrhea, No Constipation, No Melena, No Hematochezia, No Other Genitourinary: No Dysuria, No Frequency, No Incontinence, No Hematuria, No Retention, No Discharge, No Urgency, No Pain, No Flank Pain, No Other, No , No , No , No , No , No , No Musculoskeletal: No Gait Disturbance, No Joint Pain, No Joint Stiffness, No Joint Swelling, No Muscle Pain, No Muscular Weakness, No Pain In:, No Swelling In:, No Other Neurological: No Behavorial Changes, No Bowel/Bladder ControlChng, No Confusion, No Dizziness, No Gait Disturbance, No Headaches, No Impaired Coord/balance, No Memory Loss, No Numbness/Tingling, No Seizures, No Speech Problems, No Tremors, No Visual Changes, No Weakness, No Other Skin: No Dry Skin, No Eczema, No Hair Changes, No Lumps, No Mole Changes, No Mottling, No Nail Changes, No Pruritus, No Rash, No Skin Lesion Changes, No Other, No Acne Physical Exam General: moderate distress HEENT: Atraumatic, PERRLA, EOMI, Mucous membr. moist/pink Lungs: Other ([place]) Heart: S1S2, RRR, no thrills, no rubs, no gallops, no murmurs Abdomen: Normal bowel sounds, Soft, No tenderness, No hepatosplenomegaly, No masses Extremities: No clubbing, No cyanosis, No edema, Normal pulses, No tende rness/swelling Skin: No rashes, No breakdown, No significant lesion Psych/Mental Status: Other (Non-verbal) Vitals Vitals Vital Signs Date Time Temp Pulse Resp B/P (MAP) Pulse Ox O2 Delivery O2 Flow Rate FiO2 08/14/20 20:00 Room Air 08/14/20 19:00 96.9 83 24 155/90 (111) 95 96.9 VTE Prophylaxis Ordered VTE Prophylaxis Devices: No VTE Pharmacological Prophylaxi: No Assessment/Plan Assessment/Plan A/P: MRSA bacteremia Right facial cellulitis. Right parotitis. Poor dentition. Alzheimer's dementia. COVID-19 infection Sepsis Diabetes mellitus 2. Hypernatremia. Acute kidney injury. Dysphagia Justifications for Admission Other Justification Acute Parotitis ALISE MCKEON MD Aug 15, 2020 07:23
[2020-08-15] MEDS: ATROPINE 1% OPHTH SOLUTION 5ML BOTTLE. SL PRN (13:15)
[2020-08-15] MEDS ORDERED: MORPHINE SULFATE 2 MG/ML VIAL. IV PRN (16:00)
[2020-08-15 19:36] VITALS: BP 156/72
[2020-08-16] MEDS: ATROPINE 1% OPHTH SOLUTION 5ML BOTTLE. SL PRN ×2 (03:21→07:45)
[2020-08-16] MEDS: MORPHINE SULFATE 2 MG/ML VIAL. IV SCH (05:25)
--- NOTE | 2020-08-16 06:20 | NUR ---
Spoke to She with Hospice and informed of pt's status of elevated HR, low O2 saturation and increased respirations and medication may need to be increased. Received orders to increase morphine to every hour. per She/Dr. Leigh.
[2020-08-16 07:00] VITALS: BP 158/78
[2020-08-16] MEDS ORDERED: MORPHINE SULFATE 2 MG/ML VIAL. IV SCH (07:00)
[2020-08-16] MEDS ORDERED: MORPHINE SULFATE 30 ML IV PRN (07:45)
[2020-08-16] MEDS ORDERED: NALOXONE 0.4 MG/ML VIAL. IV PRN (07:45)
[2020-08-16] MEDS ORDERED: IV NORMAL SALINE 1000ML BAG 1,000 ML IV SCH (08:00)
--- NOTE | 2020-08-16 08:14 | NUR ---
Pt RR 40-50, HR 130's, and febrile. Orders received per hospice nurse/Dr. Bernardo for Morphine CONFIGURATION MANAGEMENT SPECIALIST to start at 5mg/hr and to titrate up 1mg/hr as needed for a max dose of 20mg/hr. This RN called Lynne, daughter and updated her of patient condition change. Lynne stated she would update patient . Will continue to monitor.
--- NOTE | 2020-08-16 09:05 | PDOC ---
[employer] PROGRESS NOTE Date of Service DOS: DATE: 08/16/20 TIME: 09:03 Chief Complaint Chief Complaint A/P: MRSA bacteremia Right facial cellulitis. Right parotitis. Poor dentition. Alzheimer's dementia. COVID-19 infection Sepsis Diabetes mellitus 2. Hypernatremia. Acute kidney injury. Dysphagia History of Present Illness History of Present Illness Mr Martinez is a 65 year old male past medical history Alzheimer's dementia--Covid + July 21 presents for evaluation of right-sided facial swelling. History obtained from EMS they state swelling started approximately 1 day prior to admit. Per EMS senior living states patient is having difficulty eating /drinking due to swelling. No history of fever chills nausea vomiting. On exam patient is unable to provide any history. His vital signs are stable. Patient has swelling along the right parotid and some mandibular glands. Patient has diffuse poor dentition. Swelling improved. Febrile to 101.7 F last 24 hours T-max. Minimal shortness of breath. Facial pain. Not swallowing. WBC 20.3K. Final blood cultures with MRSA. On daptomycin. Facial swelling improved. Still not taking p.o. or following instructions well. Afebrile. Still requiring O2. Following some commands. D/w his , Marissa, she notes he has had a steep decline with his Alzheimer's dementia over the last year and as of June 2020 had been a long-term senior living home resident and with his failure to progress despite a week of appropriate antibiotic therapy and IV nutrition he is still not showing interest in food or drink and she would like a referral for inpatient hospice care. 08/15: He has become progressively more dyspneic and less interactive. Respiratory rate continues to be over 20 requiring increasing doses of morphine. Overnight respiratory rate into the 40s with heart rate in the 130s. Febrile to 103.4 F. Plan: Morphine CLAIMS ASSOCIATE 5 mg/h initiated for respiratory distress and pain. Cont inpatient hospice Vitals/I&O Vitals/I&O: Vital Signs Date Time Temp Pulse Resp B/P (MAP) Pulse Ox O2 Delivery O2 Flow Rate FiO2 08/16/20 07:53 45 77 Nasal Cannula 2.0 08/16/20 07:00 103.4 135 158/78 (104) 103.4 I & O 08/15/20 08/15/20 08/16/20 15:00 23:00 07:00 Intake Total 0 ml 100 ml Balance 0 ml 100 ml Physical Exam General: moderate distress Lungs: Crackles Abdomen: Normal bowel sounds, Soft, No tenderness, No hepatosplenomegaly, No masses Extremities: No clubbing, No cyanosis, No edema, Normal pulses, No tender ness/swelling Skin: No rashes, No breakdown, No significant lesion Comment Review of Relevant I have reviewed the following items jennifer (where applicable) has been applied. Medications: Current Medications Medications (Trade) Dose Ordered Sig/Moise Route PRN Reason Start Time Stop Time Status Last Admin Dose Admin Atropine Sulfate (Isopto Atropine) 2 drop PRN Q2HR PRN SL SECRETIONS 08/15/20 12:45 08/16/20 07:45 Morphine Sulfate (Morphine Sulfate) 0.5 mg Q4HRS IV 08/15/20 16:00 08/16/20 06:20 DC 08/16/20 05:25 Morphine Sulfate (Morphine Sulfate) 1 mg PRN Q1HR PRN IV PAIN 08/15/20 16:00 08/16/20 03:12 Morphine Sulfate (Morphine Sulfate) 2 mg Q1HR IV 08/16/20 07:00 08/16/20 07:43 DC 08/16/20 06:50 Sodium Chloride 1,000 ml @ 25 mls/hr Q24H IV 08/16/20 08:00 08/16/20 07:54 Morphine Sulfate 30 ml @ 0 mls/hr CONT PRN PRN IV PER PROTOCOL 08/16/20 07:45 08/16/20 07:53 Justifications for Admission Other Justification Acute Parotitis ALISE MCKEON MD Aug 16, 2020 09:05
--- NOTE | 2020-08-16 09:45 | NUR ---
Pt at 0945. Two nurse verification done by this RN and Gisella Toussaint RN. Dr. Bernardo notified. Julia, nursing safety supervisor notified. Pt daughter, Lynne and , Marissa at the bedside. [facility] hospice nurse present and notified home. Paper record completed. [facility] called and referral number entered in the interventions. Body prepared per protocol for COVID (+) patients. Body [facility] [place] [facility] [place]. Addendum: 08/16/20 at 1142 by STEPHEN LANGSTON RN pt has no personal belongings present. Verified with family and room checked.
--- NOTE | 2020-08-16 11:59 | PDOC3 ---
Discharge Summary Visit Information Date of Admission: Aug 14, 2020 Date of Discharge: Aug 16, 2020 Admitting Diagnosis: MRSA Bacteremia, parotitis, dysphagia, COVID 19 Final Diagnosis MRSA Bacteremia, parotitis, dysphagia, COVID 19 Brief Hospital Course Allergies Allergies Coded Allergies Type Severity Reaction Last Updated Verified I S O L A T I O N *CONTACT* Allergy Unknown 08/13/20 Yes No Known Medication Allergies Allergy Unknown 08/13/20 Yes Vital Signs Vital Signs Date Time Temp Pulse Resp B/P (MAP) Pulse Ox O2 Delivery O2 Flow Rate FiO2 08/16/20 07:53 45 77 Nasal Cannula 2.0 08/16/20 07:00 103.4 135 158/78 (104) 103.4 Brief Hospital Course Mr Martinez is a 65 year old male past medical history Alzheimer's dementia--Covid + July 21 presented for evaluation of right-sided facial swelling. History obtained from EMS they state swelling started approximately 1 day prior to admit. Per EMS skilled nursing states patient is having difficulty eating /drinking due to swelling. No history of fever chills nausea vomiting. On exam patient was unable to provide any history. Noted with swelling along the right parotid and some mandibular glands. Patient has diffuse poor dentition. WBC 20.3K. Final blood cultures with MRSA. On daptomycin. Facial swelling improved. Still not taking p.o. or following instructions well. Was hospitalized on appropriate antibiotics for a week, continue to show no interest in food. D/w his , Marissa, she notes he has had a steep decline with his Alzheimer's dementia over the last year and as of June 2020 had been a long-term [facility] home resident and with his failure to progress despite a week of appropriate antibiotic therapy and IV nutrition he is still not showing interest in food or drink and she requested a referral for inpatient hospice care. 08/15: Progressively more dyspneic and less interactive. Respiratory rate continues to be over 20 requiring increasing doses of morphine. Overnight respiratory rate into the 40s with heart rate in the 130s. Febrile to 103.4 F. Started on Morphine PRIVACY DIRECTOR 5 mg/h initiated for respiratory distress and pain. Family called bedside. Patient continued to have severe respiratory distress despite morphine. 09 45 respirations ceased cardiac activity ceased for time of . MRSA bacteremia Right facial cellulitis. Right parotitis. Poor dentition. Alzheimer's dementia. COVID-19 infection Sepsis Diabetes mellitus 2. Hypernatremia. Acute kidney injury. Dysphagia Greater than 30 minutes spent on day of patient expiration Discharge Information Condition at Discharge: / Disposition/Orders: No Active Prescriptions or Reported Meds Justicifation of Admission Dx: Justifications for Admission: Justification of Admission Dx: Yes ALISE MCKEON MD Aug 16, 2020 11:59
== END 2020-08-16 11:35 | DRG 871 ==
LOC: 6 SOUTH 14:48
PROVIDERS: ADMIT Internal Medicine; ATTEND Internal Medicine
DX: A41.02 Sepsis due to Methicillin resistant Staphylococcus aureus (principal); U07.1 COVID-19; L03.211 Cellulitis of face; N17.9 Acute kidney failure, unspecified; E87.0 Hyperosmolality and hypernatremia; F02.80 Dementia in other diseases classified elsewhere, unspecified severity, without behavioral disturbance, psychotic disturbance, mood disturbance, and anxiety; G30.9 Alzheimer's disease, unspecified; I10 Essential (primary) hypertension; E11.9 Type 2 diabetes mellitus without complications; K11.21 Acute sialoadenitis; R13.10 Dysphagia, unspecified; R63.3 Feeding difficulties; Z82.0 Family history of epilepsy and other diseases of the nervous system
CPT/HCPCS: J2060; J2270; J7030; G0378